=== PATIENT | male | born 1955 | race Caucasian/White ===

== ENCOUNTER 2020-03-20 09:01 | Outpatient (CLI) | payer MEDICARE, SELFPAY ==
[2020-03-20 10:09] LABS: Hematocrit 50.9 % (42.0-52.0); Hemoglobin 17.1 g/dL (14.0-18.0); Mean Corpuscular HGB Conc 33.6 g/dl (32-36); Mean Corpuscular Hemoglobin 29.8 pg (26-34); Mean Corpuscular Volume 88.8 fl (80-100); Mean Platelet Volume 10.5 fl (7.4-10.4); Platelet Count Result 153 k/mm3 (150-375); Red Blood Count 5.73 M/mm3 (4.6-6.20); White Blood Count 6.2 K/mm3 (4.5-10.0)
[2020-03-20 10:21] LABS: Alanine Aminotransferase 18 U/L (4-50); Albumin Level 4.2 g/dL (3.5-5.1); Alkaline Phosphatase 61 U/L (38-126); Anion Gap 8 mmol/L (8-16); Aspartate Amino Transferase 20 U/L (17-59); Bilirubin,Total 0.5 mg/dL (0.2-1.3); Blood Urea Nitrogen 17 mg/dL (9-20); Calcium 9.1 mg/dL (8.4-10.2); Carbon Dioxide 30 mmol/L (22-30); Chloride 104 mmol/L (98-107); Creatine Kinase 89 U/L (55-170); Estimated Glomerular Filt Rate > 60; Glucose 115 mg/dL (75-110); Potassium 4.2 mmol/L (3.4-5.0); Sodium 142 mmol/L (137-145)
[2020-03-20 10:23] LABS: Hemoglobin A1C 5.6 % (<5.7)
[2020-03-20 10:30] LABS: NT Pro B Type Natriuretic Pept 117 PG/ML (5-100)
[2020-03-20 10:51] LABS: Prostate Specific Antigen 3.5 ng/mL (< OR = 4.0)
== END 2020-03-20 09:02 | disposition home or self-care (01) ==
PROVIDERS: PCP Student in an Organized Health Care Education/Training Program; Visit Provider Student in an Organized Health Care Education/Training Program
DX: Z00.00 Encounter for general adult medical examination without abnormal findings (principal); Z13.220 Encounter for screening for lipoid disorders; Z12.5 Encounter for screening for malignant neoplasm of prostate; Z13.29 Encounter for screening for other suspected endocrine disorder; Z13.228 Encounter for screening for other metabolic disorders; Z13.0 Encounter for screening for diseases of the blood and blood-forming organs and certain disorders involving the immune mechanism; R73.9 Hyperglycemia, unspecified; E61.1 Iron deficiency; I65.23 Occlusion and stenosis of bilateral carotid arteries; E66.9 Obesity, unspecified; Z51.81 Encounter for therapeutic drug level monitoring; I50.9 Heart failure, unspecified; J44.9 Chronic obstructive pulmonary disease, unspecified; I42.9 Cardiomyopathy, unspecified; R06.02 Shortness of breath; I49.3 Ventricular premature depolarization; R20.0 Anesthesia of skin; I21.11 ST elevation (STEMI) myocardial infarction involving right coronary artery; R00.2 Palpitations; E78.5 Hyperlipidemia, unspecified; Z87.891 Personal history of nicotine dependence; I11.0 Hypertensive heart disease with heart failure; I25.119 Atherosclerotic heart disease of native coronary artery with unspecified angina pectoris
CPT/HCPCS: 36415; 80053; 82550; 83036; 83880; 84153; 85027; G0103

== ENCOUNTER 2020-06-06 12:19 | Outpatient (CLI) | payer MEDICARE, SELFPAY ==
[2020-06-06 12:53] LABS: Cholesterol 175 mg/dL (0-200); HDL Direct 42 mg/dL; Triglycerides 338 mg/dL (<150)
[2020-06-06 13:04] LABS: LDL Cholesterol Direct 93 mg/dL
[2020-06-06 13:26] LABS: Vitamin D 25 Hydroxy 33.8 ng/mL
[2020-06-10 22:56] LABS: Vitamin D 1,25 (OH)2 Total 46 pg/mL (18-72); Vitamin D2 1,25 (OH)2 <8 pg/mL; Vitamin D3 1,25 (OH)2 46 pg/mL
== END 2020-06-06 12:20 | disposition home or self-care (01) ==
LOC: ANHLAB 12:23
PROVIDERS: PCP Student in an Organized Health Care Education/Training Program; Visit Provider Student in an Organized Health Care Education/Training Program
DX: I25.10 Atherosclerotic heart disease of native coronary artery without angina pectoris (principal); I10 Essential (primary) hypertension; E78.5 Hyperlipidemia, unspecified; Z68.33 Body mass index [BMI] 33.0-33.9, adult
CPT/HCPCS: 36415; 80061; 82306; 82652; 84443

== ENCOUNTER 2020-07-07 09:35 | Outpatient (CLI) | payer MEDICARE, SELFPAY ==
--- NOTE | ~2020-07-07 | CT_ITS ---
EXAMINATION:CT lung screening DATE: 07/07/2020 10:16 INDICATION: Nicotine dependence, cigarettes, uncomplicated. Smoker who quit in 2014 with 44 pack year history. TECHNIQUE: Computed tomography (CT) of the chest was performed without intravenous contrast. Automate d exposure control and iterative reconstruction technique were employed. The dose-length product (DLP ) was 143.74 mGy-cm. COMPARISON: None. FINDINGS: There is mild emphysema. There is a 5 mm nodule in right lower lobe. There are a few scatte red nodules in the lungs measuring up to 3 mm. No pleural effusion. The heart size is normal. 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 No pericardial e ffusion. There are coronary artery calcifications. Median sternotomy wires are noted. There is mild t horacic spondylosis. IMPRESSION: 1. Lung-RADS category 2: Benign appearance or behavior. Continue annual screening with noncontrast lo w-dose chest CT in 12 months. Reviewed, dictated and finalized at location B. PER IMPRESSION: 1. Lung-RADS category 2: Benign appearance or behavior. Continue annual screeni ng with noncontrast low-dose chest CT in 12 months.
== END 2020-07-07 09:36 | disposition home or self-care (01) ==
PROVIDERS: PCP Student in an Organized Health Care Education/Training Program; Visit Provider Student in an Organized Health Care Education/Training Program
DX: F17.210 Nicotine dependence, cigarettes, uncomplicated (principal)
CPT/HCPCS: 71271

== ENCOUNTER 2021-01-16 08:29 | Outpatient (CLI) | payer MEDICARE, SELFPAY ==
--- NOTE | ~2021-01-16 | US_ITS ---
EXAMINATION: US aorta [facility] DATE: 01/16/2021 09:10 INDICATION: Abdominal aortic aneurysm screening with risk factors of prior smoking, hypercholesterole sydni and myocardial infarction. TECHNIQUE: Grayscale, color Doppler, and pulsed Doppler images of the aorta and common iliac arteries were obtained. COMPARISON: None. FINDINGS: The proximal aorta measures 2.9 cm. The mid aorta measures 2.3 cm. Fusiform infrarenal abdominal aort ic aneurysm measuring up to 3.8 cm. The right common iliac artery measures 7 mm. The left common rita c artery measures 11 mm. IMPRESSION: 1. 3.8 cm infrarenal abdominal aortic aneurysm. Reviewed, dictated and finalized at location A.
== END 2021-01-16 08:30 | disposition home or self-care (01) ==
PROVIDERS: PCP Student in an Organized Health Care Education/Training Program; Visit Provider Student in an Organized Health Care Education/Training Program
DX: F17.211 Nicotine dependence, cigarettes, in remission (principal); Z13.6 Encounter for screening for cardiovascular disorders; I71.4 Abdominal aortic aneurysm, without rupture
CPT/HCPCS: 76706

== ENCOUNTER → 2021-02-17 00:55 | Outpatient (CLI) | payer MEDICARE, SELFPAY ==
[2021-02-17 21:01] LABS: SARS-CoV-2 RNA PCR Negative
== END ==
PROVIDERS: PCP Student in an Organized Health Care Education/Training Program; Visit Provider Internal Medicine Gastroenterology
DX: Z01.812 Encounter for preprocedural laboratory examination (principal); Z20.828 Contact with and (suspected) exposure to other viral communicable diseases
CPT/HCPCS: C9803; U0003; U0005

== ENCOUNTER 2021-02-21 00:18 | Day surgery (SDC) | payer MEDICARE, SELFPAY ==
[2021-02-08 14:11] VITALS: BMI 32.3
[2021-02-21 07:49] VITALS: BMI 33.8
[2021-02-21 07:51] VITALS: BP 141/82; PULSE 75; RESP 20; TEMP 36.3; O2SAT 95
--- NOTE | 2021-02-21 08:07 | WPDANESEPPF ---
Anes - Initial Pre Proc Eval Procedure: Operation Date: 02/21/21 08:30 Proposed Procedures p Screening Colonoscopy - Mendez Truong MD Date/Time: 02/21/21 08:07 Surgeon: Mendez Truong MD Pre Op Diagnosis: hx of colon polyps Z86.010 Patient Data Age: 66 Gender: M Height: 1.68 m Weight: 95.1 kg Last Vital Signs Temp 36.3 C L 02/21/21 07:51 Pulse 75 02/21/21 07:51 Resp 20 02/21/21 07:51 BP 141/82 H 02/21/21 07:51 Pulse Ox 95 02/21/21 07:51 Allergies Allergy/AdvReac Type Severity Reaction Status Date / Time codeine Allergy Unknown Other Verified 02/21/21 07:47 Contrast Media Allergy Unknown HIVES Uncoded 02/21/21 07:47 Home Medications Medication Instructions Recorded Confirmed Type carvedilol 25 mg tablet 25 mg PO Q12H 05/24/19 02/21/21 History clopidogrel 75 mg tablet 75 mg PO DAILY 05/24/19 02/21/21 History rosuvastatin 40 mg sprinkle capsule 40 mg PO DAILY 05/24/19 02/08/21 History aspirin [Adult Low Dose Aspirin] 81 mg PO DAILY 02/08/21 02/08/21 History Patient hx anesthesia problems: none Family hx anesthesia problems: none PMFSH Past Medical History Medical History Adult BMI 33.0-33.9 kg/sq m Arthritis CAD (coronary artery disease) CHF (congestive heart failure), NYHA class II Erectile dysfunction H/O: HTN (hypertension) Heart disease Hyperthyroidism SOB (shortness of breath) Surgical History Surgical History (Updated 02/21/21 @ 08:09 by Elias Perez MD) H/O cardiac radiofrequency ablation History of tracheostomy Social History Social History Smoking packs per day: 1 Smoking cigarettes per day: 20.0 Years smoked: 40 Smoking pack-years: 40.00 Smoking status: Former smoker Tobacco type: cigarettes Alcohol intake: never Living arrangements: with family Spiritual care concerns: No Anes - Eval Final PreProcedure Day of Procedure 02/21/21 08:07 Patient weight: obese Heart: regular rate and rhythm Lungs: clear to auscultation Airway: Mallampati scale class III Neurological: alert and oriented Last oral intake: >/= 8 hours ASA classification: IV Emergent: no Anesthetic plan: proceed Anesthesia type and monitoring: general GIVS and standard monitoring Informed Consent: The patient's anesthetic plan and its attendant risks and benefits were discussed with the patient/family/POA. Questions were solicited and answers provided to the satisfaction of the patient/family/POA.
[2021-02-21] MEDS: LACTATED RINGERS 1,000 ML 150 ML IV CONT (08:08)
--- NOTE | 2021-02-21 08:57 | PM.HPGS ---
History of Present Illness History of Present Illness Consent: Risks, benefits, and alternatives have been discussed and questions answered. Patient agrees to proceed with procedure. Chief complaint: hx of colon polyps Z86.010 Narrative: Sebastien Pineda is a 66 year old male with colon polyp 3 years ago. Review of Systems Constitutional: Constitutional: Denies headache(s) and Denies weakness Eyes: Eyes: Denies blurry vision ENT: Reports Normal hearing present, Denies headache(s) and Denies neck pain Cardiovascular: Cardiovascular: Denies chest pain and Denies dyspnea Respiratory: Respiratory: Denies dyspnea Gastrointestinal: Gastrointestinal: Reports no additional gastrointestinal complaints Genitourinary: Genitourinary: Denies dysuria Musculoskeletal: Musculoskeletal: Denies neck pain Integumentary/Breasts: Skin/Breast: Denies dry skin Neurologic: Reports Normal hearing present, Denies headache(s) and Denies weakness Psychiatric: Psychiatric: Denies anxiety Endocrine: Endocrine: Denies change in body appearance Hematologic/Lymphatic: Hematologic/Lymphatic: Denies easy bleeding Allergic/Immunologic: Allergic/Immunologic: Denies urticaria PMFSH Past Medical History Medical History (Updated 02/21/21 @ 08:57 by Mendez Truong MD) Adenomatous colon polyp Adult BMI 33.0-33.9 kg/sq m Arthritis CAD (coronary artery disease) CHF (congestive heart failure), NYHA class II Erectile dysfunction H/O: HTN (hypertension) Heart disease Hyperthyroidism SOB (shortness of breath) Surgical History Surgical History (Updated 02/21/21 @ 08:09 by Elias Perez MD) H/O cardiac radiofrequency ablation History of tracheostomy Social History Social History Smoking packs per day: 1 Smoking cigarettes per day: 20.0 Years smoked: 40 Smoking pack-years: 40.00 Smoking status: Former smoker Tobacco type: cigarettes Alcohol intake: never Living arrangements: with family Spiritual care concerns: No Meds Home Medications and Allergies Home Medications Medication Instructions Recorded Confirmed Type carvedilol 25 mg tablet 25 mg PO Q12H 05/24/19 02/21/21 History clopidogrel 75 mg tablet 75 mg PO DAILY 05/24/19 02/21/21 History rosuvastatin 40 mg sprinkle capsule 40 mg PO DAILY 05/24/19 02/08/21 History aspirin [Adult Low Dose Aspirin] 81 mg PO DAILY 02/08/21 02/08/21 History Allergies Allergy/AdvReac Type Severity Reaction Status Date / Time codeine Allergy Unknown Other Verified 02/21/21 07:47 Contrast Media Allergy Unknown HIVES Uncoded 02/21/21 07:47 Vital Signs Vital Signs - 24 hr 02/21/21 07:51 Temperature 97.3 F L Pulse Rate 75 Respiratory Rate 20 Blood Pressure 141/82 H Pulse Oximetry 95 Exam Const: General: comfortable and no acute distress HENMT: General nose exam: Normal nares present Eyes: General: appearance normal, both eyes and all related structures Neck: Neck: no JVD Resp: Auscultation: clear to auscultation bilaterally Cardio: Rate: regular rate Rhythm: regular rhythm GI: Inspection: non-distended GI Palp: Yes Soft to palpation Skin: General skin exam: normal color Neuro: General: gait normal Speech: normal speech Extrem: General: normal to inspection Psych: Mental Status: mental status grossly normal Assessment and Plan Assessment and plan (1) Adenomatous colon polyp: Code(s): D12.6 - Benign neoplasm of colon, unspecified Status: Acute Assessment and Plan: colonoscopy
[2021-02-21 09:15] VITALS: BP 110/67; PULSE 74; RESP 14; O2SAT 96
[2021-02-21 09:25] VITALS: BP 118/80; PULSE 71; RESP 13; O2SAT 93
[2021-02-21 09:38] VITALS: BP 134/75; PULSE 73; RESP 14; O2SAT 96
== END 2021-02-21 09:51 | disposition home or self-care (01) ==
PROVIDERS: PCP Student in an Organized Health Care Education/Training Program; Visit Provider Internal Medicine Gastroenterology
PROC: 0DJD8ZZ Inspection of Lower Intestinal Tract, Via Natural or Artificial Opening Endoscopic (ICD-10-PCS; CPT 45378; principal; 2021-02-21 08:30)
DX: Z12.11 Encounter for screening for malignant neoplasm of colon (principal); D12.0 Benign neoplasm of cecum; D12.3 Benign neoplasm of transverse colon; K57.30 Diverticulosis of large intestine without perforation or abscess without bleeding; K64.8 Other hemorrhoids; I25.10 Atherosclerotic heart disease of native coronary artery without angina pectoris; I11.0 Hypertensive heart disease with heart failure; I50.9 Heart failure, unspecified; Z79.82 Long term (current) use of aspirin; Z79.02 Long term (current) use of antithrombotics/antiplatelets; Z87.891 Personal history of nicotine dependence; E66.9 Obesity, unspecified; Z68.33 Body mass index [BMI] 33.0-33.9, adult
CPT/HCPCS: 45385; 88305; C9803; J2704; J7120; U0003; U0005

== ENCOUNTER 2021-06-02 12:37 | Emergency (ER) | payer MEDICARE, SELFPAY ==
[2021-06-02 13:11] VITALS: BP 128/77; PULSE 88; RESP 17; TEMP 36.6; O2SAT 98
[2021-06-02 16:03] VITALS: BP 130/76; PULSE 86; RESP 20; O2SAT 99
[2021-06-02 16:15] LABS: Basophils Percent Auto 0.4 % (0.2-1.2); Hematocrit 44.7 % (42.0-52.0); Immature Granulocyte Absolute 0.03 K/mm3 (0.00-0.031); Immature Granulocyte Percent A 0.7 % (0-0.5); Immature Platelet Fraction Pct 7.8 % (0.9-11.2); Lymphocytes Absolute Auto 0.92 K/mm3 (0.9-3.2); Mean Corpuscular HGB Conc 33.6 g/dl (32-36); Mean Corpuscular Hemoglobin 29.3 pg (26-34); Mean Corpuscular Volume 87.3 fl (80-100); Mean Platelet Volume 11.9 fl (7.4-10.4); Monocytes Absolute Auto 0.2 K/mm3 (0.1-0.6); Monocytes Percent Auto 4.6 % (2.6-8.5); Neutrophils Absolute Auto 3.4 K/mm3 (1.3-6.7); Neutrophils Percent Auto 74.3 % (45.5-73.1); Platelet Count Result 93 k/mm3 (150-375); Red Blood Count 5.12 M/mm3 (4.6-6.20); White Blood Count 4.6 K/mm3 (4.5-10.0)
[2021-06-02] MEDS: SODIUM CHLORIDE 0.9% IV 1,000 ML 999 ML IV CONT (16:15)
[2021-06-02] MEDS: ONDANSETRON INJ 4 MG/2 ML VIAL 8 MG IV PUSH (16:15)
[2021-06-02 16:24] LABS: Alanine Aminotransferase 26 U/L (4-50); Albumin Level 4.4 g/dL (3.5-5.1); Alkaline Phosphatase 55 U/L (38-126); Anion Gap 8 mmol/L (8-16); Aspartate Amino Transferase 34 U/L (17-59); Bilirubin,Total 0.6 mg/dL (0.2-1.3); Blood Urea Nitrogen 15 mg/dL (9-20); Calcium 8.4 mg/dL (8.4-10.2); Carbon Dioxide 29 mmol/L (22-30); Chloride 94 mmol/L (98-107); Estimated CRCL calculation 66 ml/min; Estimated Glomerular Filt Rate > 60; Glucose 99 mg/dL (65-110); Potassium 4.1 mmol/L (3.4-5.0); Sodium 131 mmol/L (137-145)
--- NOTE | 2021-06-02 16:49 | ED.GENADULT ---
HPI - General Adult General Chief complaint: Nausea/Vomiting/Diarrhea Stated complaint: covid+ ?? Time Seen by Provider: 06/02/21 15:46 Source: patient and RN notes reviewed Limitations: no limitations History of Present Illness HPI narrative: Patient is 66 years old white male presented to the ED with nausea and dry cough. Patient tested positive for Covid infection 8 days ago. Patient is not vaccinated. Patient denies any shortness of breath or chest pain. Related Data Home Medications Medication Instructions Recorded Confirmed carvedilol 25 mg tablet 25 mg PO Q12H 05/24/19 02/21/21 clopidogrel 75 mg tablet 75 mg PO DAILY 05/24/19 02/21/21 rosuvastatin 40 mg sprinkle capsule 40 mg PO DAILY 05/24/19 02/08/21 aspirin [Adult Low Dose Aspirin] 81 mg PO DAILY 02/08/21 02/08/21 Allergies Allergy/AdvReac Type Severity Reaction Status Date / Time codeine Allergy Unknown Other Verified 06/02/21 16:01 Contrast Media Allergy Unknown HIVES Uncoded 06/02/21 16:01 Review of Systems Review of Systems: CONSTITUTIONAL: Denies fever, chills, or sweats. EYES: Denies visual changes, redness, or discharge. ENT: Denies rhinorrhea, congestion, sore throat, or otalgia. CARDIOVASCULAR: Denies chest pain, palpitations, or edema. RESPIRATORY: Denies cough or dyspnea. GASTROINTESTINAL: Denies abdominal pain, nausea, vomiting, or diarrhea. GENITOURINARY: Denies dysuria or hematuria. SKIN: Denies rash or itching. MUSCULOSKELETAL: Denies back pain, joint pain, or myalgia. NEUROLOGIC: Denies headache, numbness, or weakness. PSYCHIATRIC: Denies anxiety or depression. [facility], [facility] Past Medical History Medical History Adenomatous colon polyp Adult BMI 33.0-33.9 kg/sq m Arthritis CAD (coronary artery disease) CHF (congestive heart failure), NYHA class II Erectile dysfunction H/O: HTN (hypertension) Heart disease Hyperthyroidism SOB (shortness of breath) Surgical History Surgical History H/O cardiac radiofrequency ablation History of tracheostomy Social History Social History Smoking packs per day: 1 Smoking cigarettes per day: 20.0 Years smoked: 40 Smoking pack-years: 40.00 Smoking status: Former smoker Tobacco type: cigarettes Alcohol intake: never Spiritual care concerns: No Exam Narrative: General appearance: Well-developed, well-nourished Skin: Normal color Head: Normocephalic, nontraumatic Eyes: Clear conjunctiva ENT: Oropharynx normal, ears normal, nose normal Neck: Supple, nontender Chest and respiratory: Airway patent, no respiratory distress, no accessory muscle use Heart: Regular rate/rhythm Abdomen: Soft, nontender, no organomegaly, quiet bowel sounds Vascular: Normal peripheral pulses, normal capillary refill. Musculoskeletal: Normal range of motion, nontender back Neurologic: Alert and oriented ?3, ASH HANDLER is normal as tested, no gross motor deficit Course Course Emergency Course: Stable Vital Signs Vital signs: Vital Signs Temperature 36.6 C 06/02/21 13:11 Pulse Rate 88 06/02/21 13:11 Respiratory Rate 17 06/02/21 13:11 Blood Pressure 128/77 06/02/21 13:11 Pulse Oximetry 98 06/02/21 13:11 Temperature 36.6 C 06/02/21 13:11 Pulse Rate 86 06/02/21 16:03 Respiratory Rate 20 06/02/21 16:03 Blood Pressure 130/76 06/02/21 16:03 Pulse Oximetry 99 06/02/21 16:03 Medical Decision Making MDM Narrative Medical decision making narrative: Covid infection syndrome. Clinically patient looks okay, oxygenation on room air 98%, patient denying any s
[2021-06-02 17:55] VITALS: BP 122/67; PULSE 95; RESP 20; O2SAT 100
== END 2021-06-02 17:57 | disposition home or self-care (01) ==
PROVIDERS: Emergency Provider Emergency Medicine; PCP Student in an Organized Health Care Education/Training Program
DX: U07.1 COVID-19 (principal); I25.10 Atherosclerotic heart disease of native coronary artery without angina pectoris; I50.9 Heart failure, unspecified; I11.0 Hypertensive heart disease with heart failure; E05.90 Thyrotoxicosis, unspecified without thyrotoxic crisis or storm; Z87.891 Personal history of nicotine dependence; Z79.82 Long term (current) use of aspirin
CPT/HCPCS: 36415; 80053; 85025; 85055; 96361; 96374; 99284; J2405; J7030

== ENCOUNTER 2021-06-08 13:42 | Inpatient (IN) | payer MEDICARE, SELFPAY ==
[2021-06-08] VITALS (27 sets, daily range): BP systolic 91–143; BP diastolic 60–92; PULSE 85–101; RESP 20–39; TEMP 36.4–39.5; O2SAT 84–96; BMI 34.0
--- NOTE | ~2021-06-08 | XR_ITS ---
EXAMINATION: XR chest 1V portable DATE: 06/08/2021 15:54 INDICATION: Cough. COVID positive. TECHNIQUE: frontal view of the chest was obtained. COMPARISON: CT dated 07/07/2020 FINDINGS: Patchy airspace opacities throughout the right lung and to lesser degree in the left mid and lower emilia ng zones. No pleural effusion or pneumothorax. Cardiac mediastinal silhouette is within normal limits for AP technique. Median sternotomy wires. IMPRESSION: 1. Patchy bilateral lung disease more prominent and extensive on the right consistent with multifocal pneumonia including COVID pneumonia. Differential would include less likely asymmetric pulmonary bubba ma. Reviewed, dictated and finalized at location . MOLDER HELPER IMPRESSION: 1. Patchy bilateral lung disease more prominent and extensive on the right cons istent with multifocal pneumonia including COVID pneumonia. Differential would include less likely asymmetric pulmonary edema.
--- NOTE | ~2021-06-08 | XR_ITS ---
EXAMINATION: XR chest 1V portable EXAM DATE: 06/13/2021 08:42 INDICATION: Chest pain and dyspnea . TECHNIQUE: Portable AP frontal chest x-ray was obtained. Comparison is made to prior examination from 06/10/2021. FINDINGS: There is multi segmental bibasilar airspace disease, but with interval improvement in the r ight upper lobe airspace disease. No pneumothorax or pleural effusion. Sternotomy wires are present w ithout findings to suggest sternal dehiscence. Cardiomediastinal silhouette is normal. There are mild bony degenerative changes. IMPRESSION: 1. Extensive bibasilar pneumonia with interval improvement in right upper lobe. Reviewed, dictated and finalized at location A. ING WHEEL INSPECTOR IMPRESSION: 1. Extensive bibasilar pneumonia with interval improvement in right upper lobe .
--- NOTE | ~2021-06-08 | CT_ITS ---
EXAMINATION: CTA chest PE abdomen pel DATE: 06/08/2021 16:43 INDICATION: Shortness of breath, hypoxia, fever, COVID positive and positive d-dimer. TECHNIQUE: Computed tomography (CT) pulmonary angiogram of the chest was performed with 100 mL Omnipa que-350 intravenous contrast. Additional 3D reconstructions utilizing coronal maximum intensity proje ction (MIP) were performed. CT of the abdomen and pelvis was performed with intravenous contrast util izing the same contrast bolus following a short delay. Automated exposure control and iterative recon struction technique were employed. The dose-length product was 1339.92 mGy-cm. COMPARISON: None FINDINGS: Chest: Excellent contrast opacification of the pulmonary arteries. There is mild streak artifact from dense contrast in the superior vena cava and right atrium. Mild scattered respiratory motion artifact which does not significantly limit evaluation. No pulmonary embolism. Multiple bilateral patchy groundglas s opacities in both lungs with peripheral and lower lung predominance with appearance consistent with COVID pneumonia. There is more relatively large region of more dense consolidation with air bronchog nam in the right upper lobe with appearance more suspicious for atypical pneumonia. Also atypical fo r COVID pneumonia is the presence of a small right pleural effusion. No pneumothorax or left-sided pl eural effusion. Heart size is normal. Atherosclerotic coronary artery calcific lesions and likely cor onary stenting along the right coronary artery. No pericardial effusion. Median sternotomy wires. Tho racic aorta is normal in caliber with no dissection. Likely reactive mildly prominent but still robin l-sized likely reactive right hilar and mediastinal lymph nodes. No pathologically enlarged thoracic lymphadenopathy. Mild thoracic spondylosis. Abdomen/pelvis: Diffuse hepatic steatosis with more focal pattern steatosis at the ligamentum teres. Gallbladder, spl een, pancreas, bilateral adrenal glands and kidneys are normal. There is mild colonic diverticulosis with a sigmoid predominance. There is no adjacent inflammatory change to suggest diverticulitis. Sma ll bowel and appendix are normal. Bladder is normal. No free intraperitoneal gas or fluid. No patholo gically enlarged abdominal or pelvic lymphadenopathy. Mild ectasia of the infrarenal abdominal aorta measuring up to 3.1 cm in maximal diameter. 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 Mild thoracic spondylosis. IMPRESSION: 1. No pulmonary embolism. 2. Diffuse bilateral lung disease with consistent with COVID pneumonia and more dense consolidation i n the right upper lobe along with a small right pleural effusion which raises suspicion of superimpos ed lobar bacterial pneumonia. 3. Likely reactive mild right hilar and mediastinal lymphadenopathy. 4. No acute intra-abdominal/pelvic process. Reviewed, dictated and finalized at [facility] H. DEVELOPER WITH [employer] IMPRESSION: 1. No pulmonary embolism. 2. Diffuse bilateral lung disease with consistent with COVID pneumonia and more dense consolidation in the right upper lobe along with a small right pleural e ffusion which raises suspicion of superimposed lobar bacterial pneumonia. 3. Likely reactive mild right hilar and mediastinal lymphadenopathy. 4. No acute intra-abdominal/pelvic process.
--- NOTE | ~2021-06-08 | XR_ITS ---
EXAMINATION: XR chest 1V portable EXAM DATE: 06/17/2021 06:06 INDICATION: Dyspnea and cough. TECHNIQUE: Portable AP frontal chest x-ray was obtained. Comparison is made to prior examination from 06/13/2021. FINDINGS: Sternotomy wires are present without findings to suggest sternal dehiscence. There is multi segmental bibasilar airspace disease, diffuse abnormal reticulation with continued improvement since more confluent consolidation. No pneumothorax or pleural effusion. Cardiomediastinal silhouette is n ormal. There are mild bony degenerative changes. IMPRESSION: Moderate amount of basilar airspace disease, pneumonia or edema with continued improvemen t. Reviewed, dictated and finalized at location A. UNT DEVELOPMENT ASSOCIATE IMPRESSION: Moderate amount of basilar airspace disease, pneumonia or edema wit h continued improvement.
--- NOTE | ~2021-06-08 | XR_ITS ---
XR chest 1V portable DATE: 06/10/2021 10:34 INDICATION: Pneumonia TECHNIQUE: Portable upright AP chest on 06/10/2021 at 0911 hours COMPARISON: 06/08/2021 CTA chest abdomen pelvis 06/08/2021 portable AP chest FINDINGS: Status post sternotomy. Normal heart size. There are extensive patchy bilateral pulmonary infiltrates, diffusely involving the right lung, most prominent in the right upper lobe with consolidation, and left lower lung. There is little interval change since 06/04/2021. No pleural effusion or pneumothorax. IMPRESSION: Extensive bilateral pulmonary infiltrates, right greater than left, relatively stable sin ce 06/08/2021 Reviewed, dictated and finalized at location A. G MACHINE OPERATOR IMPRESSION: Extensive bilateral pulmonary infiltrates, right greater than left, relatively stable since 06/08/2021
--- NOTE | 2021-06-08 14:44 | PC.NURSE ---
DIRECTOR OCCUPATIONAL carmen aware of temp of 103.1, Pt took tylenol around 12:30. DIRECTOR OCCUPATIONAL seeing patient at bedside at this time.
--- NOTE | 2021-06-08 14:54 | ECG_ITS ---
Measurements Intervals [place] Rate: 95 P: 39 IL: 121 QRS: 35 QRSD: 119 T: 7 QT: 367 QTc: 462 Interpretive Statements SINUS RHYTHM POSSIBLE LEFT ATRIAL ENLARGEMENT INTRAVENTRICULAR CONDUCTION DELAY MINIMAL Q WAVES- INFERIOR LEADS BORDERLINE ST ABNORMALITY- LATERAL LEADS BASELINE ARTIFACT- I, II, III, AVR, AVL, AVF, V1-V6 BORDERLINE ECG Electronically Signed On 06-08-2021 17:00:16 WEAPONS AND [employer] INSTRUCTOR by Ari Anderson D.O.
--- NOTE | 2021-06-08 15:06 | ED.GENADULT ---
HPI - General Adult General Chief complaint: Shortness of Breath/Dyspnea Stated complaint: sob, COVID + Time Seen by Provider: 06/08/21 14:18 Source: patient Mode of arrival: ambulatory Limitations: other (Poor historian) History of Present Illness HPI narrative: Patient presents for evaluation of fever, chills, cough. He indicates he developed symptoms on May 27, 2021. He took a home Covid test that was positive that day. He states his children checked his O2 sats at home and they were low, so they brought him here for further evaluation. He states his cough has been nonproductive. He initially informed me that he has not experienced SOB but later states that he is. He denies any chest pain or leg swelling. He has experienced a sore throat. He denies abdominal pain, nausea or vomiting. He has an underlying hx of HTN, hyperlipidemia, CAD s/p stent placement x 9. He cannot tell me whether he has ever been on or is currently taking any blood thinners. He is a former smoker. He states his is currently hospitalized here for COVID. He states that he did not receive COVID vaccines as he has a hx of Guillain [place] syndrome. Related Data Home Medications Medication Instructions Recorded Confirmed carvedilol 25 mg tablet 25 mg PO Q12H 05/24/19 02/21/21 clopidogrel 75 mg tablet 75 mg PO DAILY 05/24/19 02/21/21 rosuvastatin 40 mg sprinkle capsule 40 mg PO DAILY 05/24/19 02/08/21 aspirin [Adult Low Dose Aspirin] 81 mg PO DAILY 02/08/21 02/08/21 Allergies Allergy/AdvReac Type Severity Reaction Status Date / Time codeine Allergy Unknown Other Verified 06/08/21 14:39 Contrast Media Allergy Unknown HIVES Uncoded 06/08/21 14:39 Review of Systems Review of Systems: CONSTITUTIONAL: Reports fever and chills. Denies sweating EYES: Denies visual changes, redness, or discharge. ENT: Reports sore throat. Denies rhinorrhea, congestion, or otalgia. CARDIOVASCULAR: Denies chest pain, palpitations, or edema. RESPIRATORY: Reports nonproductive cough and SOB. GASTROINTESTINAL: Denies abdominal pain, nausea, vomiting, or diarrhea. GENITOURINARY: Denies dysuria or hematuria. SKIN: Denies rash or itching. MUSCULOSKELETAL: Denies back pain, joint pain, or myalgia. NEUROLOGIC: Denies headache, numbness, dizziness, or weakness. PSYCHIATRIC: Denies anxiety or depression. [facility] Past Medical History Medical History (Updated 06/08/21 @ 18:42 by JAIME Villarreal, ) Adenomatous colon polyp Adult BMI 33.0-33.9 kg/sq m Arthritis CAD (coronary artery disease) CHF (congestive heart failure), NYHA class II Erectile dysfunction H/O: HTN (hypertension) Heart disease Hyperthyroidism SOB (shortness of breath) Surgical History Surgical History H/O cardiac radiofrequency ablation History of heart artery stent History of tracheostomy Family History Family History Mother No pertinent past medical history Social History Social History Smoking packs per day: 1 Smoking cigarettes per day: 20.0 Years smoked: 40 Smoking pack-years: 40.00 Smoking status: Former smoker Tobacco type: cigarettes Alcohol intake: never Substance use: never Living arrangements: with family Gender identity (if verbalized by the patient): Male Sexual Orientation (if Verbalized by the Patient): Straight or Heterosexual Spiritual care concerns: No Exam Narrative: GENERAL: Ill appearing, diaphoretic with generalized pallor HEAD: Normocephalic, atraumatic. EYES: PERRLA and EOMI. ENT: Nares clear, no rhinorrhea or epistaxis. Mucous membranes moist. Oropharynx without tonsillar hypertrophy exudate or other lesions. Bilateral TMs pearly milner nonbulging NECK: Supple. No adenopathy or masses. No carotid bruits or JVD CHEST: Rales noted bilaterally. Cough prese
[2021-06-08 15:27] LABS: Basophils Percent Auto 0.5 % (0.2-1.2); Hematocrit 40.3 % (42.0-52.0); Hemoglobin 13.2 g/dL (14.0-18.0); Immature Granulocyte Absolute 0.69 K/mm3 (0.00-0.031); Immature Granulocyte Percent A 8.2 % (0-0.5); Lymphocytes Percent Auto 7.1 % (18.3-44.2); Mean Corpuscular HGB Conc 32.8 g/dl (32-36); Mean Corpuscular Hemoglobin 28.8 pg (26-34); Mean Platelet Volume 10.9 fl (7.4-10.4); Monocytes Absolute Auto 0.3 K/mm3 (0.1-0.6); Monocytes Percent Auto 3.1 % (2.6-8.5); Neutrophils Absolute Auto 6.9 K/mm3 (1.3-6.7); Neutrophils Percent Auto 81.1 % (45.5-73.1); Platelet Count Result 153 k/mm3 (150-375); Red Blood Count 4.58 M/mm3 (4.6-6.20); Red Cell Distribution Width 13.6 % (11.5-14.5); White Blood Count 8.5 K/mm3 (4.5-10.0)
[2021-06-08] MEDS: ACETAMINOPHEN 325 MG TABLET 650 MG PO (15:29)
[2021-06-08 15:36] LABS: INR 1.1; Prothrombin Time 14.2 Seconds (11.1-14.7)
[2021-06-08 15:37] LABS: Alanine Aminotransferase 133 U/L (4-50); Albumin Level 3.5 g/dL (3.5-5.1); Alkaline Phosphatase 193 U/L (38-126); Anion Gap 10 mmol/L (8-16); Aspartate Amino Transferase 403 U/L (17-59); Bilirubin,Total 2.2 mg/dL (0.2-1.3); Blood Urea Nitrogen 28 mg/dL (9-20); Calcium 7.8 mg/dL (8.4-10.2); Carbon Dioxide 28 mmol/L (22-30); Chloride 90 mmol/L (98-107); Estimated CRCL calculation 56 ml/min; Estimated Glomerular Filt Rate > 60; Glucose 102 mg/dL (65-110); Partial Thromboplastin Time 41.8 SECONDS (22.3-36.8); Potassium 3.9 mmol/L (3.4-5.0); Sodium 128 mmol/L (137-145)
[2021-06-08 15:47] LABS: Alveolar/Arterial O2 Gradient 152.1 mmHg; Base Excess ABG 1.7 mEq/l (+/-2.0); Fractional Inspired Oxygen 36 %; HCO3 ABG 25.2 mEq/l (22.0-26.0); Oxygen Content ABG 17.6 %vol (16.0-22.0); Oxygen Saturation ABG 93.2 % (95.0-100.0); Oxyhemoglobin 90.7 % THb (90.0-100.0); PCO2 ABG 36.4 mmHg (35.0-45.0); PO2 ABG 62.4 mmHg (80.0-100.0); PO2 FiO2 Ratio Arterial Blood 1.73 %; Total Hemoglobin 13.8 g/dL (12.0-18.0); pH ABG 7.459 (7.350-7.450)
[2021-06-08 15:48] LABS: Device NASAL CANNULA; Modified Allen's Test Pass; Site Drawn LEFT RADIAL
[2021-06-08 15:53] LABS: D Dimer 6.31 ug/mL (<0.48); NT Pro B Type Natriuretic Pept 3150 pg/mL (5-100); Troponin I 0.072 ng/mL (0.000-0.034)
--- NOTE | 2021-06-08 16:19 | PC.NURSE ---
Pt off floor to CT scan
--- NOTE | 2021-06-08 16:19 | PC.NURSE ---
Two sets of blood cultures drawn and sent prior to starting antibiotics. Will call lab to reflect this order.
[2021-06-08 16:40] LABS: Platelet Estimate Adequate (Adequate); Smudge Cells FEW
[2021-06-08 18:14] LABS: Troponin I 0.078 ng/mL (0.000-0.034)
[2021-06-08] MEDS: LACTATED RINGERS 1,000 ML 125 ML IV CONT (19:25)
--- NOTE | 2021-06-08 19:51 | PC.NURSE ---
Called and gave update to daughter with permission of patient, gave update.
[2021-06-08] MEDS: ALBUTEROL SULFATE (*SP) AEROSOL 1 PUFF 2 PUFF INHALATION (20:14)
--- NOTE | 2021-06-08 20:15 | PM.IMHP ---
H&P: HPI History of Present Illness Date/Time: 06/08/21 20:15 Chief Complaint: Shortness of breath Narrative: This is a 66-year-old male with past medical history significant for coronary artery disease, congestive heart failure, hypertension, hyperlipidemia. Patient presented to the emergency room due to worsening shortness of breath, dry cough, fatigue, body aches and pains, fevers, chills, poor appetite. According to patient he had tested positive for COVID with a home kit 12 days ago. According to history patient's is also admitted here for COVID pneumonia patient was not a candidate for COVID vaccine due to history of Guillain-[place]. His children were visiting today and checked his pulse ox which was low which prompted him to come to the emergency room his pulse ox on room air was 88% and patient was placed on 2 L of supplemental oxygen by nasal cannula at the time of my visit patient had a persistent dry cough. Preliminary workup was significant for chest x-ray with diffuse infiltrates, a CT angiogram the chest was significant for diffuse bilateral lung disease with consistent with COVID pneumonia and more dense consolidation in the right upper lobe along with a small right pleural effusion which raises suspicion of superimposed lobar bacterial pneumonia. Patient has been admitted for further evaluation management and treatment. Review of Systems Review of Systems: Dry cough, body aches and pains, poor appetite, shortness of breath, fevers, chills rigors. Constitutional: Constitutional: Reports chills, Reports fatigue, Reports fever(s), Reports lethargy, Reports malaise, Reports night sweats and Reports poor appetite Eyes: Eyes: Denies change in vision ENT: Denies dysphagia, Denies nasal congestion, Denies nasal discharge, Denies nasal obstruction and Denies odynophagia Cardiovascular: Cardiovascular: Denies leg edema, Denies lightheadedness, Denies radiating jaw, neck or arm pain, Denies palpitations, Denies dyspnea on exertion and Denies orthopnea Respiratory: Respiratory: Reports cough, Denies excessive phlegm production and Reports dyspnea Gastrointestinal: Gastrointestinal: Denies abdominal pain, Denies dyspepsia, Denies heartburn, Denies nausea and Denies vomiting Genitourinary: Genitourinary: Denies dysuria Musculoskeletal: Musculoskeletal: Reports myalgias Integumentary/Breasts: Skin/Breast: Denies rash Neurologic: Denies focal weakness and Denies Sensory deficit (Neuro) Psychiatric: Psychiatric: Reports no additional psychiatric complaints and Reports as per HPI Endocrine: Endocrine: Denies cold intolerance, Denies polyphagia and Denies palpitations Hematologic/Lymphatic: Hematologic/Lymphatic: Reports no additional hematologic/lymphatic complaints and Reports as per HPI Allergic/Immunologic: Allergic/Immunologic: Reports no additional allergic/immunologic complaints and Reports as per HPI [facility] Past Medical History Medical History (Updated 06/09/21 @ 00:11 by Teagan Lr MD) Adenomatous colon polyp Adult BMI 33.0-33.9 kg/sq m Arthritis CAD (coronary artery disease) CHF (congestive heart failure), NYHA class II Erectile dysfunction H/O: HTN (hypertension) Heart disease Hyperthyroidism SOB (shortness of breath) Surgical History Surgical History H/O cardiac radiofrequency ablation History of heart artery stent History of tracheostomy Family History Family History Mother No pertinent past medical history Social History Social History Smoking packs per day: 1 Smoking cigarettes per day: 20.0 Years smoked: 40 Smoking pack-years: 40.00 Smoking status: Former smoker Tobacco type: cigarettes Second hand tobacco smoke exposure: No Alcohol intake: never Substance use: never Living arrangements: [facility]
--- NOTE | 2021-06-08 20:29 | PC.NURSE ---
OK to speak with daughterEulalia. [phone]
--- NOTE | 2021-06-08 20:59 | PC.NURSE ---
Attempted to call daughter Eulalia to update on bed status, did not answer, voicemail box full.
[2021-06-08 21:08] LABS: Troponin I 0.059 ng/mL (0.000-0.034)
--- NOTE | 2021-06-08 21:17 | PC.NURSE ---
Spoke with daughter about bed status (Eulalia [phone])
--- NOTE | 2021-06-08 22:45 | ADMGEN ---
This patient, Sebastien Pineda, was admitted to [facility] Surg Room 316-02. Patient/family oriented to hospital policies and general routines including ID bracelet, bed and alarms, visiting hours, pain management, procedures, bathroom and other care routines, personal items, smoking policy, room service/diet, and visiting hours. Information on how to activate the Rapid Response Team has been discussed. Patient/Family are encouraged to report perceived risks to care and to ask questions if they do not understand what they are told or what they should do.
[2021-06-08 23:31] LABS: INR 1.1; Prothrombin Time 13.9 Seconds (11.1-14.7)
[2021-06-08 23:32] LABS: Alanine Aminotransferase 150 U/L (4-50); Estimated CRCL calculation 61 ml/min; Estimated Glomerular Filt Rate > 60
[2021-06-08] MEDS: REMDESIVIR 200 MG/NS 250 ML 200 MG/250 ML BAG 250 MG IVPB (23:38)
[2021-06-09] VITALS (11 sets, daily range): BP systolic 105–169; BP diastolic 59–95; PULSE 74–91; RESP 18–25; TEMP 35.6–36.8; O2SAT 90–97
[2021-06-09] MEDS: LACTATED RINGERS 1,000 ML 125 ML IV CONT ×3 (05:24→21:20)
[2021-06-09 06:23] LABS: Basophils Absolute Auto 0.1 K/mm3 (0.0-0.1); Basophils Percent Auto 0.7 % (0.2-1.2); Hematocrit 38.5 % (42.0-52.0); Hemoglobin 12.3 g/dL (14.0-18.0); Immature Granulocyte Absolute 0.26 K/mm3 (0.00-0.031); Lymphocytes Absolute Auto 0.49 K/mm3 (0.9-3.2); Lymphocytes Percent Auto 5.6 % (18.3-44.2); Mean Corpuscular HGB Conc 31.9 g/dl (32-36); Mean Corpuscular Hemoglobin 28.5 pg (26-34); Mean Corpuscular Volume 89.1 fl (80-100); Mean Platelet Volume 10.7 fl (7.4-10.4); Monocytes Absolute Auto 0.2 K/mm3 (0.1-0.6); Monocytes Percent Auto 2.4 % (2.6-8.5); Neutrophils Absolute Auto 7.7 K/mm3 (1.3-6.7); Neutrophils Percent Auto 88.3 % (45.5-73.1); Platelet Count Result 159 k/mm3 (150-375); Red Blood Count 4.32 M/mm3 (4.6-6.20); Red Cell Distribution Width 13.6 % (11.5-14.5); White Blood Count 8.8 K/mm3 (4.5-10.0)
[2021-06-09 06:31] LABS: INR 1.2; Prothrombin Time 14.8 Seconds (11.1-14.7)
[2021-06-09 06:48] LABS: Alanine Aminotransferase 147 U/L (4-50); Albumin Level 3.3 g/dL (3.5-5.1); Alkaline Phosphatase 171 U/L (38-126); Anion Gap 8 mmol/L (8-16); Aspartate Amino Transferase 444 U/L (17-59); Bilirubin,Total 1.3 mg/dL (0.2-1.3); Blood Urea Nitrogen 25 mg/dL (9-20); Calcium 7.9 mg/dL (8.4-10.2); Carbon Dioxide 31 mmol/L (22-30); Chloride 91 mmol/L (98-107); Estimated CRCL calculation 67 ml/min; Estimated Glomerular Filt Rate > 60; Glucose 188 mg/dL (65-110); Potassium 3.9 mmol/L (3.4-5.0); Sodium 130 mmol/L (137-145)
--- NOTE | 2021-06-09 11:36 | PM.IMPN ---
Progress Note: A&P Assessment and Plan (1) Pneumonia due to COVID-19 virus: Code(s): U07.1 - COVID-19; J12.82 - Pneumonia due to coronavirus disease 2019 Status: Acute Assessment and Plan: Patient tested positive for COVID-19 with a home kit Check PCR Continue remdesivir and dexamethasone On 6 L O2 Monitor Cr, liver function, PT/INR Supportive care (2) Acute hypoxemic respiratory failure: Code(s): J96.01 - Acute respiratory failure with hypoxia Status: Acute Assessment and Plan: Likely secondary to pneumonia Patient is currently on supplemental oxygen 6 L by nasal cannula Try and keep oxygen saturation at 94% Supportive care Breathing treatment (3) Lobar pneumonia: Code(s): J18.1 - Lobar pneumonia, unspecified organism Status: Acute Assessment and Plan: Patient receive ceftriaxone and Zithromax in the emergency room Added vancomycin and Zosyn, continue for now Follow Await cultures (4) CAD (coronary artery disease): Code(s): I25.10 - Atherosclerotic heart disease of [place] coronary artery without angina pectoris Status: Acute Assessment and Plan: Continue Plavix, continue carvedilol Continue rosuvastatin Continue to monitor (5) CHF (congestive heart failure), NYHA class II: Code(s): I50.9 - Heart failure, unspecified Status: Acute Assessment and Plan: Appears to be compensated Continue to monitor Subjective Date/time seen: 06/09/21 11:36 Interval history: Pt seen this a.m.; labs, vs, diagnostic results reviewed; +SOB, GAMBLE Review of Systems Review of Systems: All systems reviewed & are unremarkable except as noted in HPI and below Exam Const: General: no acute distress, alert and awake Orientation/consciousness: patient oriented x3 HENMT: Head: normocephalic and atraumatic Ears: hearing grossly normal bilaterally and external ears normal Face and sinus: face symmetric Mouth: Yes Normal oral and palatal mucosa present Eyes: EOM: EOMs intact bilaterally Neck: Neck: full ROM, trachea midline and no JVD Chest: Chest palpation & inspection: normal inspection of the chest Resp: Effort & Inspection: normal respiratory effort Cardio: Jugular venous distension: no JVD Rate: regular rate Rhythm: regular rhythm GI: Auscultation: normal bowel sounds Back/Spine/Pelvis: Back: no CVA tenderness Skin: General skin exam: normal color Rashes: no rashes Neuro: General: patient oriented x3, moves all extremities and no focal motor deficits Speech: normal speech Extrem: General: no clubbing, cyanosis or edema Psych: Appearance: grossly normal Affect: normal affect Judgement: Good judgement present (Psych) Objective Data Vital Signs Vital Signs: Vital Signs - 24 hr 06/08/21 13:53 06/08/21 13:56 06/08/21 14:11 Temperature 37.7 C H Pulse Rate 90 99 Respiratory Rate 20 39 H Blood Pressure 107/61 Pulse Oximetry 88 L 93 96 06/08/21 14:15 06/08/21 14:16 06/08/21 14:17 Temperature Pulse Rate 99 99 99 Respiratory Rate 38 H 35 H 39 H Blood Pressure 111/71 Pulse Oximetry 86 L 87 L 96 06/08/21 14:33 06/08/21 14:39 06/08/21 15:00 Temperature 39.5 C H Pulse Rate 101 H 100 Respiratory Rate 36 H Blood Pressure 143/83 H 128/62 Pulse Oximetry 94 93 06/08/21 16:08 06/08/21 17:09 06/08/21 17:10 Temperature 37.2 C Pulse Rate 95 90 88 Respiratory Rate 35 H 30 H Blood Pressure 123/85 Pulse Oximetry 91 91 92 06/08/21 17:15 06/08/21 17:36 06/08/21 18:49 Temperature Pulse Rate 88 86 85 Respiratory Rate Blood Pressure 114/87 Pulse Oximetry 93 93 91 06/08/21 19:00 06/08/21 19:15 06/08/21 19:30 Temperature Pulse Rate 86 86 90 Respiratory Rate 35 H 33 H Blood Pressure Pulse Oximetry 90 06/08/21 19:35 06/08/21 20:00 06/08/21 20:01 Temperature Pulse Rate 85 87 Respiratory Rate 26 H 27 H Blood Pressure 91/64 L Pulse Oximetry 84 L 90
[2021-06-09] MEDS: WATER FOR IRRIGATION, STERILE 1,000 ML BOTTLE 1000 ML (14:09)
[2021-06-09] MEDS: MELATONIN 5 MG TABLET PO (22:23)
[2021-06-09] MEDS: REMDESIVIR 100 MG/NS 250 ML 100 MG/250 ML BAG 250 MG IVPB (23:49)
[2021-06-10] VITALS (8 sets, daily range): BP systolic 101–152; BP diastolic 54–81; PULSE 64–75; RESP 18–21; TEMP 35.6–36.8; O2SAT 91–99
[2021-06-10] MEDS: ONDANSETRON INJ 4 MG/2 ML VIAL IV PUSH (03:17)
[2021-06-10 06:28] LABS: INR 1.1; Prothrombin Time 13.6 Seconds (11.1-14.7)
[2021-06-10 06:31] LABS: Alanine Aminotransferase 117 U/L (4-50); Estimated CRCL calculation 94 ml/min; Estimated Glomerular Filt Rate > 60
[2021-06-10 08:59] LABS: Hematocrit 40.1 % (42.0-52.0); Hemoglobin 12.9 g/dL (14.0-18.0); Mean Corpuscular HGB Conc 32.2 g/dl (32-36); Mean Corpuscular Hemoglobin 29.3 pg (26-34); Mean Corpuscular Volume 90.9 fl (80-100); Mean Platelet Volume 11.6 fl (7.4-10.4); Platelet Count Result 171 k/mm3 (150-375); Red Blood Count 4.41 M/mm3 (4.6-6.20); Red Cell Distribution Width 13.5 % (11.5-14.5); White Blood Count 8.8 K/mm3 (4.5-10.0)
[2021-06-10] MEDS: ENOXAPARIN 40 MG/0.4 ML SYRINGE SUB-Q (10:29)
[2021-06-10] MEDS: DEXAMETHASONE 2 MG TABLET 6 MG PO (10:29)
[2021-06-10 10:59] LABS: Alanine Aminotransferase 123 U/L (4-50); Albumin Level 3.2 g/dL (3.5-5.1); Alkaline Phosphatase 149 U/L (38-126); Anion Gap 3 mmol/L (8-16); Aspartate Amino Transferase 324 U/L (17-59); Blood Urea Nitrogen 26 mg/dL (9-20); CRP 28.8 mg/dL (<1.0); Calcium 8.3 mg/dL (8.4-10.2); Carbon Dioxide 31 mmol/L (22-30); Chloride 98 mmol/L (98-107); Estimated CRCL calculation 94 ml/min; Estimated Glomerular Filt Rate > 60; Glucose 125 mg/dL (65-110); Lactate Dehydrogenase 1872 U/L (313-618); Potassium 4.6 mmol/L (3.4-5.0); Sodium 132 mmol/L (137-145)
--- NOTE | 2021-06-10 11:37 | PM.IMPN ---
Progress Note: A&P Assessment and Plan (1) Acute hypoxemic respiratory failure: Code(s): J96.01 - Acute respiratory failure with hypoxia Status: Acute Assessment and Plan: Secondary to COVID pneumonia with complement bacterial pneumonia. Continue supplemental oxygen as needed with goal saturation 92% or above. Currently on 8 L per nasal cannula and maintaining sats 98%, therefore this can be weaned. Plan as detailed below No PE on CTA (2) Pneumonia due to COVID-19 virus: Code(s): U07.1 - COVID-19; J12.82 - Pneumonia due to coronavirus disease 2018 Status: Acute Assessment and Plan: Positive COVID test with home kit 12 days prior to presentation. CXR showed patchy bilateral lung disease, more extensive on the right side and CTA showed diffuse lung disease consistent with COVID pneumonia and more dense consolidation in the right upper lobe raising concern for superimposed bacterial pneumonia. Confirmatory PCR testing at this facility is pending Continue remdesivir #3. Monitor LFTs. LFTs are elevated but trending down. ALT 117 Started dexamethasone 6 mg daily today. Continue for up to 10 days He is outside window for administration of baricitinib despite his increasing O2 requirements Supportive care to include bronchodilators, expectorants, antipyretics, incentive spirometry Supplemental O2 as needed. Currently requiring 8 L per high flow nasal cannula Continue isolation precautions Patient has not been vaccinated for COVID-19 due to history of Guillain-[place] syndrome at age 14 (3) Lobar pneumonia: Code(s): J18.1 - Lobar pneumonia, unspecified organism Status: Acute Assessment and Plan: See above. Repeat CXR pending Continue ceftriaxone and azithromycin for treatment of CAP. Preliminary blood cultures negative Attempt to obtain sputum culture Repeat CXR today shows stable pneumonia (4) CAD (coronary artery disease): Code(s): I25.10 - Atherosclerotic heart disease of [place] coronary artery without angina pectoris Status: Acute Assessment and Plan: No acute issues Continue home regimen including aspirin, Plavix, rosuvastatin (5) CHF (congestive heart failure), NYHA class II: Code(s): I50.9 - Heart failure, unspecified Status: Acute Assessment and Plan: No prior echo available for review. 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 He is feeling a bit better today. He states that his shortness of breath is improving. He is coughing less frequently. He does endorse a persistent cough that is occasionally productive of white sputum. Denies hemoptysis. Denies chest pain. Does endorse occasional conversational dyspnea as well as dyspnea on exertion. Denies nausea, vomiting, diarrhea. He did have a loose stool 2 days ago but no subsequent issues. His appetite is good. Sense of smell and taste remain intact. Denies dizziness or lightheadedness. He did have trouble falling asleep last night. Discussed sleep hygiene. He tells me that his is hospitalized in intensive care secondary to COVID-19. Review of Systems Review of Systems: All systems reviewed & are unremarkable except as noted in HPI and below Exam Narrative: Mr. Pineda is a well-nourished, well-appearing 66-year-old male who is lying supine in bed. He appears comfortable and is in NARD. Neuro: awake, alert and oriented x4, speech clear, no focal neuro deficits noted HEENMT: normocephalic, atraumatic, EOMI, sclerae anicteric, moist oral mucosa Neck: supple, no l
--- NOTE | 2021-06-10 11:37 | P.PNIM_ITS ---
Progress Note: A&P Assessment and Plan (1) Acute hypoxemic respiratory failure: Code(s): J96.01 - Acute respiratory failure with hypoxia Status: Acute Assessment and Plan: Secondary to COVID pneumonia with complement bacterial pneumonia. * Continue supplemental oxygen as needed with goal saturation 92% or above. * Currently on 8 L per nasal cannula and maintaining sats 98%, therefore this can be weaned. * Plan as detailed below * No PE on CTA (2) Pneumonia due to COVID-19 virus: Code(s): U07.1 - COVID-19; J12.82 - Pneumonia due to coronavirus disease 2019 Status: Acute Assessment and Plan: Positive COVID test with home kit 12 days prior to presentation. CXR showed patchy bilateral lung disease, more extensive on the right side and CTA showed diffuse lung disease consistent with COVID pneumonia and more dense consolidation in the right upper lobe raising concern for superimposed bacterial pneumonia. * Confirmatory PCR testing at this facility is pending * Continue remdesivir #3. Monitor LFTs. LFTs are elevated but trending down. ALT 117 * Started dexamethasone 6 mg daily today. Continue for up to 10 days * He is outside window for administration of baricitinib despite his increasing O2 requirements * Supportive care to include bronchodilators, expectorants, antipyretics, incentive spirometry * Supplemental O2 as needed. Currently requiring 8 L per high flow nasal cannula * Continue isolation precautions * Patient has not been vaccinated for COVID-19 due to history of Guillain-[place] syndrome at age 14 (3) Lobar pneumonia: Code(s): J18.1 - Lobar pneumonia, unspecified organism Status: Acute Assessment and Plan: See above. * Repeat CXR pending * Continue ceftriaxone and azithromycin for treatment of CAP. * Preliminary blood cultures negative * Attempt to obtain sputum culture * Repeat CXR today shows stable pneumonia (4) CAD (coronary artery disease): Code(s): I25.10 - Atherosclerotic heart disease of [place] coronary artery without angina pectoris Status: Acute Assessment and Plan: No acute issues * Continue home regimen including aspirin, Plavix, rosuvastatin (5) CHF (congestive heart failure), NYHA class II: Code(s): I50.9 - Heart failure, unspecified Status: Acute Assessment and Plan: No prior echo available for review. 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 He is feeling a bit better today. He states that his shortness of breath is improving. He is coughing less frequently. He does endorse a persistent cough that is occasionally productive of white sputum. Denies hemoptysis. Denies chest pain. Does endorse occasional conversational dyspnea as well as dyspnea on exertion. Denies nausea, vomiting, diarrhea. He did have a loose stool 2 days ago but no subsequent issues. His appetite is good. Sense of smell and taste remain intact. Denies dizziness or lightheadedness. He did have trouble falling asleep last night. Discussed sleep hygiene. He tells me that his is hospitalized in intensive care secondary to COVID-19. Review of Systems Review of Systems: All
[2021-06-10] MEDS: SODIUM CHLORIDE NASAL GEL 14.1 GM 1 APPLIC NASAL (12:11)
[2021-06-10 12:26] LABS: Ferritin > 2000.00 ng/mL (11.1-264)
[2021-06-10 17:04] LABS: SARS-CoV-2 RNA PCR Positive
[2021-06-10] MEDS: guaiFENesin 12 HR 600 MG TABCR PO (20:18)
[2021-06-10] MEDS: REMDESIVIR 100 MG/NS 250 ML 100 MG/250 ML BAG 250 MG IVPB (20:18)
[2021-06-10] MEDS: MELATONIN 5 MG TABLET PO (20:18)
[2021-06-11] VITALS (9 sets, daily range): BP systolic 109–145; BP diastolic 63–77; PULSE 65–88; RESP 18–20; TEMP 35.5–37.7; O2SAT 90–98
[2021-06-11] MEDS: diphenhydrAMINE HCl CAP 25 MG CAPSULE PO (00:16)
[2021-06-11] MEDS: ALBUTEROL SULFATE (*SP) AEROSOL 1 PUFF 2 PUFF INHALATION ×4 (03:20→21:16)
[2021-06-11 05:13] LABS: Hematocrit 39.6 % (42.0-52.0); Mean Corpuscular HGB Conc 32.8 g/dl (32-36); Mean Corpuscular Hemoglobin 29.7 pg (26-34); Mean Corpuscular Volume 90.6 fl (80-100); Mean Platelet Volume 11.2 fl (7.4-10.4); Platelet Count Result 217 k/mm3 (150-375); Red Blood Count 4.37 M/mm3 (4.6-6.20); Red Cell Distribution Width 13.3 % (11.5-14.5); White Blood Count 6.7 K/mm3 (4.5-10.0)
[2021-06-11 05:23] LABS: Prothrombin Time 13.5 Seconds (11.1-14.7)
[2021-06-11 05:27] LABS: Alanine Aminotransferase 118 U/L (4-50); Alkaline Phosphatase 161 U/L (38-126); Anion Gap 2 mmol/L (8-16); Aspartate Amino Transferase 210 U/L (17-59); Bilirubin,Total 0.8 mg/dL (0.2-1.3); Blood Urea Nitrogen 22 mg/dL (9-20); Carbon Dioxide 37 mmol/L (22-30); Chloride 96 mmol/L (98-107); Estimated CRCL calculation 83 ml/min; Estimated Glomerular Filt Rate > 60; Glucose 137 mg/dL (65-110); Lactate Dehydrogenase 1443 U/L (313-618); Potassium 4.3 mmol/L (3.4-5.0); Sodium 135 mmol/L (137-145)
[2021-06-11 05:35] LABS: CRP 16.2 mg/dL (<1.0)
[2021-06-11 05:44] LABS: Vancomycin Trough 7.6 ug/mL (10.0-20.0)
[2021-06-11 06:50] LABS: Ferritin > 2000.00 ng/mL (11.1-264)
[2021-06-11] MEDS: DEXAMETHASONE 2 MG TABLET 6 MG PO (08:40)
[2021-06-11] MEDS: ENOXAPARIN 40 MG/0.4 ML SYRINGE SUB-Q (09:02)
[2021-06-11] MEDS: guaiFENesin 12 HR 600 MG TABCR PO ×2 (09:02→20:50)
--- NOTE | 2021-06-11 14:56 | P.PNIM_ITS ---
Progress Note: A&P Assessment and Plan (1) Acute hypoxemic respiratory failure: Code(s): J96.01 - Acute respiratory failure with hypoxia Status: Acute Assessment and Plan: Secondary to COVID pneumonia with concomitant bacterial pneumonia. * Continue supplemental oxygen as needed with goal saturation 92% or above. * Currently on 6 L per nasal cannula and maintaining adequate O2 sats * Plan as detailed below * No PE on CTA (2) Pneumonia due to COVID-19 virus: Code(s): U07.1 - COVID-19; J12.82 - Pneumonia due to coronavirus disease 2018 Status: Acute Assessment and Plan: Positive COVID test with home kit 12 days prior to presentation. CXR showed patchy bilateral lung disease, more extensive on the right side and CTA showed diffuse lung disease consistent with COVID pneumonia and more dense consolidation in the right upper lobe raising concern for superimposed bacterial pneumonia. * Confirmatory PCR testing positive from test 06/09/2021 * Continue remdesivir #3. Monitor LFTs. LFTs are elevated but trending down. ALT 118 * Continue dexamethasone 6 mg daily. #2 today. Continue for up to 10 days * Supportive care to include bronchodilators, expectorants, antipyretics, incentive spirometry * Supplemental O2 as needed. Currently requiring 6 L per high flow nasal cannula * Continue isolation precautions * Patient has not been vaccinated for COVID-19 due to history of Guillain-[place] syndrome at age 14 (3) Lobar pneumonia: Code(s): J18.1 - Lobar pneumonia, unspecified organism Status: Acute Assessment and Plan: See above. * Repeat CXR yesterday showed stable pneumonia * Continue ceftriaxone and azithromycin for treatment of CAP. * Vancomycin and Zosyn discontinued 06/10. Pt does not have risk factors and has not recently been hospitalized. * Preliminary blood cultures negative * Attempt to obtain sputum culture (4) CAD (coronary artery disease): Code(s): I25.10 - Atherosclerotic heart disease of [place] coronary artery without angina pectoris Status: Acute Assessment and Plan: No acute issues * Continue home regimen including aspirin, Plavix, rosuvastatin (5) CHF (congestive heart failure), NYHA class II: Code(s): I50.9 - Heart failure, unspecified Status: Acute Assessment and Plan: No prior echo available for review. 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 Feels better today. Shortness of breath is somewhat. Continues to endorse dry cough productive of clear sputum. He has very poor appetite but he is trying to get himself to eat for each meal and has been eating well. He does feel overall weak and quite fatigued. He has been sleeping for much of the day. He has been trying to lie in a prone position when he can. Denies nausea, vomiting, fever, chills. Denies dizziness or lightheadedness. He has been able to get up to the bedside commode and feels steady on his feet. Denies diarrhea. No trouble urinating. No additional concerns at this time. Review of Systems Review of Systems: All systems reviewed & are unremarkable except as noted in HPI and below Exam Narrative: Mr. Pineda is a well-nourished, wel
--- NOTE | 2021-06-11 14:56 | PM.IMPN ---
Progress Note: A&P Assessment and Plan (1) Acute hypoxemic respiratory failure: Code(s): J96.01 - Acute respiratory failure with hypoxia Status: Acute Assessment and Plan: Secondary to COVID pneumonia with concomitant bacterial pneumonia. Continue supplemental oxygen as needed with goal saturation 92% or above. Currently on 6 L per nasal cannula and maintaining adequate O2 sats Plan as detailed below No PE on CTA (2) Pneumonia due to COVID-19 virus: Code(s): U07.1 - COVID-19; J12.82 - Pneumonia due to coronavirus disease 2018 Status: Acute Assessment and Plan: Positive COVID test with home kit 12 days prior to presentation. CXR showed patchy bilateral lung disease, more extensive on the right side and CTA showed diffuse lung disease consistent with COVID pneumonia and more dense consolidation in the right upper lobe raising concern for superimposed bacterial pneumonia. Confirmatory PCR testing positive from test 06/09/2021 Continue remdesivir #3. Monitor LFTs. LFTs are elevated but trending down. ALT 118 Continue dexamethasone 6 mg daily. #2 today. Continue for up to 10 days Supportive care to include bronchodilators, expectorants, antipyretics, incentive spirometry Supplemental O2 as needed. Currently requiring 6 L per high flow nasal cannula Continue isolation precautions Patient has not been vaccinated for COVID-19 due to history of Guillain-[place] syndrome at age 14 (3) Lobar pneumonia: Code(s): J18.1 - Lobar pneumonia, unspecified organism Status: Acute Assessment and Plan: See above. Repeat CXR yesterday showed stable pneumonia Continue ceftriaxone and azithromycin for treatment of CAP. Vancomycin and Zosyn discontinued 06/10. Pt does not have risk factors and has not recently been hospitalized. Preliminary blood cultures negative Attempt to obtain sputum culture (4) CAD (coronary artery disease): Code(s): I25.10 - Atherosclerotic heart disease of [place] coronary artery without angina pectoris Status: Acute Assessment and Plan: No acute issues Continue home regimen including aspirin, Plavix, rosuvastatin (5) CHF (congestive heart failure), NYHA class II: Code(s): I50.9 - Heart failure, unspecified Status: Acute Assessment and Plan: No prior echo available for review. 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 Feels better today. Shortness of breath is somewhat. Continues to endorse dry cough productive of clear sputum. He has very poor appetite but he is trying to get himself to eat for each meal and has been eating well. He does feel overall weak and quite fatigued. He has been sleeping for much of the day. He has been trying to lie in a prone position when he can. Denies nausea, vomiting, fever, chills. Denies dizziness or lightheadedness. He has been able to get up to the bedside commode and feels steady on his feet. Denies diarrhea. No trouble urinating. No additional concerns at this time. Review of Systems Review of Systems: All systems reviewed & are unremarkable except as noted in HPI and below Exam Narrative: Mr. Pineda is a well-nourished, well-appearing 66-year-old male who is lying supine in bed. He appears comfortable and is in NARD. Neuro: awake, alert and oriented x4, speech clear, no focal neuro deficits noted HEENMT: normocephalic, atraumatic, EOMI, sclerae anicteric, moist oral mucosa Neck: supple, no lymphadenopathy Respiratory: Scattered rhonchi, faint post expiratory wheezes, nonlabored breathing, no accessory muscle use or retraction
[2021-06-11] MEDS: REMDESIVIR 100 MG/NS 250 ML 100 MG/250 ML BAG 250 MG IVPB (20:50)
[2021-06-11] MEDS: MELATONIN 5 MG TABLET PO (20:50)
[2021-06-12] VITALS (8 sets, daily range): BP systolic 124–138; BP diastolic 48–73; PULSE 61–79; RESP 16–22; TEMP 36.3–36.8; O2SAT 93–100
--- NOTE | 2021-06-12 03:45 | PCRCNOTE ---
past scheduled time for administration- see next available administration
[2021-06-12 06:46] LABS: Hemoglobin 13.8 g/dL (14.0-18.0); Mean Corpuscular HGB Conc 31.4 g/dl (32-36); Mean Corpuscular Hemoglobin 29.1 pg (26-34); Mean Corpuscular Volume 92.6 fl (80-100); Mean Platelet Volume 10.4 fl (7.4-10.4); Platelet Count Result 241 k/mm3 (150-375); Red Blood Count 4.75 M/mm3 (4.6-6.20); Red Cell Distribution Width 13.4 % (11.5-14.5); White Blood Count 7.3 K/mm3 (4.5-10.0)
[2021-06-12 06:53] LABS: INR 1.1; Prothrombin Time 14.5 Seconds (11.1-14.7)
[2021-06-12 07:03] LABS: Alanine Aminotransferase 124 U/L (4-50); Albumin Level 3.2 g/dL (3.5-5.1); Alkaline Phosphatase 154 U/L (38-126); Anion Gap 2 mmol/L (8-16); Aspartate Amino Transferase 133 U/L (17-59); Bilirubin,Total 0.6 mg/dL (0.2-1.3); Blood Urea Nitrogen 22 mg/dL (9-20); Calcium 8.3 mg/dL (8.4-10.2); Carbon Dioxide 36 mmol/L (22-30); Chloride 98 mmol/L (98-107); Estimated CRCL calculation 94 ml/min; Estimated Glomerular Filt Rate > 60; Glucose 112 mg/dL (65-110); Lactate Dehydrogenase 1199 U/L (313-618); Potassium 4.2 mmol/L (3.4-5.0); Sodium 136 mmol/L (137-145)
[2021-06-12] MEDS: guaiFENesin 12 HR 600 MG TABCR PO ×2 (09:11→20:15)
[2021-06-12] MEDS: DEXAMETHASONE 2 MG TABLET 6 MG PO (09:11)
[2021-06-12] MEDS: ENOXAPARIN 40 MG/0.4 ML SYRINGE SUB-Q (09:12)
[2021-06-12] MEDS: ACETAMINOPHEN 325 MG TABLET 650 MG PO ×2 (09:26→20:15)
[2021-06-12] MEDS: ALBUTEROL SULFATE (*SP) AEROSOL 1 PUFF 2 PUFF INHALATION ×4 (10:08→20:50)
--- NOTE | 2021-06-12 12:30 | PM.IMPN ---
Progress Note: A&P Assessment and Plan (1) Acute hypoxemic respiratory failure: Code(s): J96.01 - Acute respiratory failure with hypoxia Status: Acute Assessment and Plan: Secondary to COVID pneumonia with concomitant bacterial pneumonia. Continue supplemental oxygen as needed with goal saturation 92% or above. Currently on RA sating 94-97% Plan as detailed below No PE on CTA (2) Pneumonia due to COVID-19 virus: Code(s): U07.1 - COVID-19; J12.82 - Pneumonia due to coronavirus disease 2018 Status: Acute Assessment and Plan: Positive COVID test with home kit 12 days prior to presentation. CXR showed patchy bilateral lung disease, more extensive on the right side CTA showed diffuse lung disease consistent with COVID pneumonia and more dense consolidation in the right upper lobe raising concern for superimposed bacterial pneumonia. Confirmatory PCR testing positive from test 06/09/2021 Continue remdesivir #4. LFTs are elevated but trending down. ALT 124 Continue dexamethasone 6 mg daily. #3 today. Continue for up to 10 days Supportive care to include bronchodilators, expectorants, antipyretics, incentive spirometry Supplemental O2 as needed. wean to maintain saturation above 92% Continue isolation precautions Patient has not been vaccinated for COVID-19 due to history of Guillain-Roann syndrome at age 14 inflammatory markers: CRP 7.0, LDH 1199, AST/ALT 133/124, alk phos 154 (3) Lobar pneumonia: Code(s): J18.1 - Lobar pneumonia, unspecified organism Status: Acute Assessment and Plan: See above. Repeat CXR showed stable pneumonia 06/11/21 Continue ceftriaxone and azithromycin for treatment of CAP. Vancomycin and Zosyn discontinued 06/10. Pt does not have risk factors and has not recently been hospitalized. Preliminary blood cultures negative Attempt to obtain sputum culture (4) CAD (coronary artery disease): Code(s): I25.10 - Atherosclerotic heart disease of [place] coronary artery without angina pectoris Status: Acute Assessment and Plan: No acute issues Continue home regimen including aspirin, Plavix, rosuvastatin (5) CHF (congestive heart failure), NYHA class II: Code(s): I50.9 - Heart failure, unspecified Status: Acute Assessment and Plan: No prior echo available for review. He does appear euvolemic on exam Continue carvedilol Monitor volume status (6) Insomnia: Code(s): G47.00 - Insomnia, unspecified Status: Acute Assessment and Plan: Probably from the steroids Melatonin Added Xanax Time Spent With Patient Time with patient: Greater than 35 minutes Subjective Date/time seen: 06/12/21 12:30 Interval history: Interval history: Date of service: 06/11/2021 Sebastien Pineda is a 66-year-old male with a history of CAD, CHF, hypertension, hyperthyroidism, and Guillain-Roann syndrome with residual neuropathy who is seen in follow-up for COVID-19 pneumonia. Feels better today. Shortness of breath is somewhat. Continues to endorse dry cough productive of clear sputum. He has very poor appetite but he is trying to get himself to eat for each meal and has been eating well. He does feel overall weak and quite fatigued. He has been sleeping for much of the day. He has been trying to lie in a prone position when he can. Denies nausea, vomiting, fever, chills. Denies dizziness or lightheadedness. He has been able to get up to the bedside commode and feels steady on his feet. Denies diarrhea. No trouble urinating. No additional concerns at this time. Date/Time 06/12/21 1230 Patient was lying in bed. Patient was on 5 L however patient was sitting 100% on 5 L. oxygen was weaned down and he is on room air satting 94-97%. Patient is complaining that he is not getting any sleep. He states that the melatonin does not work for him. Appetite still lagging he lydia
--- NOTE | 2021-06-12 12:30 | P.PNIM_ITS ---
Progress Note: A&P Assessment and Plan (1) Acute hypoxemic respiratory failure: Code(s): J96.01 - Acute respiratory failure with hypoxia Status: Acute Assessment and Plan: * Secondary to COVID pneumonia with concomitant bacterial pneumonia. * Continue supplemental oxygen as needed with goal saturation 92% or above. * Currently on RA sating 94-97% * Plan as detailed below * No PE on CTA (2) Pneumonia due to COVID-19 virus: Code(s): U07.1 - COVID-19; J12.82 - Pneumonia due to coronavirus disease 2018 Status: Acute Assessment and Plan: * Positive COVID test with home kit 12 days prior to presentation. * CXR showed patchy bilateral lung disease, more extensive on the right side * CTA showed diffuse lung disease consistent with COVID pneumonia and more dense consolidation in the right upper lobe raising concern for superimposed bacterial pneumonia. * Confirmatory PCR testing positive from test 06/09/2021 * Continue remdesivir #4. * LFTs are elevated but trending down. ALT 124 * Continue dexamethasone 6 mg daily. #3 today. Continue for up to 10 days * Supportive care to include bronchodilators, expectorants, antipyretics, incentive spirometry * Supplemental O2 as needed. wean to maintain saturation above 92% * Continue isolation precautions * Patient has not been vaccinated for COVID-19 due to history of Guillain-[place] syndrome at age 14 * inflammatory markers: CRP 7.0, LDH 1199, AST/ALT 133/124, alk phos 154 (3) Lobar pneumonia: Code(s): J18.1 - Lobar pneumonia, unspecified organism Status: Acute Assessment and Plan: See above. * Repeat CXR showed stable pneumonia 06/11/21 * Continue ceftriaxone and azithromycin for treatment of CAP. * Vancomycin and Zosyn discontinued 06/10. Pt does not have risk factors and has not recently been hospitalized. * Preliminary blood cultures negative * Attempt to obtain sputum culture (4) CAD (coronary artery disease): Code(s): I25.10 - Atherosclerotic heart disease of [place] coronary artery without angina pectoris Status: Acute Assessment and Plan: No acute issues * Continue home regimen including aspirin, Plavix, rosuvastatin (5) CHF (congestive heart failure), NYHA class II: Code(s): I50.9 - Heart failure, unspecified Status: Acute Assessment and Plan: * No prior echo available for review. * He does appear euvolemic on exam * Continue carvedilol * Monitor volume status (6) Insomnia: Code(s): G47.00 - Insomnia, unspecified Status: Acute Assessment and Plan: * Probably from the steroids * Melatonin * Added Xanax Time Spent With Patient Time with patient: Greater than 35 minutes Subjective Date/time seen: 06/12/21 12:30 Interval history: Interval history: Date of service: 06/11/2021 Sebastien Pineda is a 66-year-old male with a history of CAD, CHF, hypertension, hyperthyroidism, and Guillain-[place] syndrome with residual neuropathy who is seen in follow-up for COVID-19 pneumonia. Feels better today. Shortness of breath is somewhat. Continues to endorse dry cough productive of clear sputum. He has very poor appetite but he is trying to get himself to eat for each meal and has been eating well. He does feel overall weak and quite fatigued. He has been sleeping for much of the day. He has been trying to lie in a prone position when he can. Denies nausea, vomiting, fever, chills. Denies dizziness or lightheadedness. He has been able to get up to the bedside commode an
[2021-06-12] MEDS: LORazepam INJ (*CRX) 2 MG/ML VIAL 0.25 MG IV PUSH (13:45)
[2021-06-12] MEDS: MELATONIN 5 MG TABLET PO (20:15)
[2021-06-12] MEDS: REMDESIVIR 100 MG/NS 250 ML 100 MG/250 ML BAG 250 MG IVPB (21:02)
[2021-06-12] MEDS: ALPRAZolam (*CRX) 0.125 MG TABLET PO (21:52)
[2021-06-13] VITALS (22 sets, daily range): BP systolic 106–149; BP diastolic 60–92; PULSE 75–90; RESP 14–24; TEMP 35.9–36.5; O2SAT 91–96
[2021-06-13] MEDS: ALBUTEROL SULFATE (*SP) AEROSOL 1 PUFF 2 PUFF INHALATION ×3 (02:04→20:30)
--- NOTE | 2021-06-13 07:15 | PM.IMPN ---
Progress Note: A&P Assessment and Plan (1) Acute hypoxemic respiratory failure: Code(s): J96.01 - Acute respiratory failure with hypoxia Status: Acute Assessment and Plan: Secondary to COVID pneumonia with concomitant bacterial pneumonia. Continue supplemental oxygen as needed with goal saturation 92% or above. Saturations in the high 80s when sitting at rest Currently on 2L sating 92% Plan as detailed below No PE on CTA (2) Pneumonia due to COVID-19 virus: Code(s): U07.1 - COVID-19; J12.82 - Pneumonia due to coronavirus disease 2018 Status: Acute Assessment and Plan: Positive COVID test with home kit 12 days prior to presentation. repeat CXR showed Extensive bibasilar pneumonia with interval improvement in right upper lobe. CTA showed diffuse lung disease consistent with COVID pneumonia and more dense consolidation in the right upper lobe raising concern for superimposed bacterial pneumonia. Confirmatory PCR testing positive from test 06/09/2021 Continue remdesivir #5 extended for 5 more days LFTs are elevated AST/ALT 135/176 Continue dexamethasone 6 mg daily. #5 today. Changed to IV BID Continue Azithromycin, Ceftriaxone has been DC'd Supportive care to include bronchodilators, expectorants, antipyretics, incentive spirometry Supplemental O2 as needed. wean to maintain saturation above 92% Continue isolation precautions Patient has not been vaccinated for COVID-19 due to history of Guillain-[place] syndrome at age 14 inflammatory markers: CRP 4.7, LDH 1386, Dimer 3.75, Ferritin 1140 (3) Lobar pneumonia: Code(s): J18.1 - Lobar pneumonia, unspecified organism Status: Acute Assessment and Plan: See above. Repeat CXR showed stable pneumonia 06/12/21 Continue azithromycin, DC'd ceftriaxone at this time Day 5 Vancomycin and Zosyn discontinued 06/10. Pt does not have risk factors and has not recently been hospitalized. Preliminary blood cultures negative Sputum culture shows gram positive cocci, still preliminary (4) CAD (coronary artery disease): Code(s): I25.10 - Atherosclerotic heart disease of [place] coronary artery without angina pectoris Status: Acute Assessment and Plan: Chest pain noted today Continue home regimen including aspirin, rosuvastatin, carvedilol Hold plavix since he is on lovenox Trops 7.730, repeat is pending Repeat EKG no significant changes from [address] Anderson about this and added full dose lovenox, and need to look for any new wall abnormalities (5) CHF (congestive heart failure), NYHA class II: Code(s): I50.9 - Heart failure, unspecified Status: Acute Assessment and Plan: No prior echo available for review. Could be fluid overloaded, BNP high on the 24th, repeat pending One dose of lasix 40mg IV Could be going into an acute exacerbation with noted chest pain, and increased shortness of breath Continue carvedilol Monitor volume status (6) Insomnia: Code(s): G47.00 - Insomnia, unspecified Status: Acute Assessment and Plan: Probably from the steroids Melatonin Increase Xanax (7) Chest pain: Code(s): R07.9 - Chest pain, unspecified Status: Acute Assessment and Plan: Sternal chest pain with no radiation Extensive CAD history Does have a significant cough Trop elevated at 7.730, will trend Echo pending BNP 4780 Cardiology consult thank you for your help, review case with who was listed on the call list, Dr. Anderson, who stated that this is all probably related to the history and also to covid. He recommended to get the echo and to see if there is any wall abnormalities, prior to an official consult Heart healthy diet (8) Elevated troponin: Code(s): R77.8 - Other specified abnormalities of plasma proteins Status: Acute Assessment and Plan: First trop
--- NOTE | 2021-06-13 07:15 | P.PNIM_ITS ---
Progress Note: A&P Assessment and Plan (1) Acute hypoxemic respiratory failure: Code(s): J96.01 - Acute respiratory failure with hypoxia Status: Acute Assessment and Plan: * Secondary to COVID pneumonia with concomitant bacterial pneumonia. * Continue supplemental oxygen as needed with goal saturation 92% or above. * Saturations in the high 80s when sitting at rest * Currently on 2L sating 92% * Plan as detailed below * No PE on CTA (2) Pneumonia due to COVID-19 virus: Code(s): U07.1 - COVID-19; J12.82 - Pneumonia due to coronavirus disease 2018 Status: Acute Assessment and Plan: * Positive COVID test with home kit 12 days prior to presentation. * repeat CXR showed Extensive bibasilar pneumonia with interval improvement in right upper lobe. * CTA showed diffuse lung disease consistent with COVID pneumonia and more dense consolidation in the right upper lobe raising concern for superimposed bacterial pneumonia. * Confirmatory PCR testing positive from test 06/09/2021 * Continue remdesivir #5 extended for 5 more days * LFTs are elevated AST/ALT 135/176 * Continue dexamethasone 6 mg daily. #5 today. Changed to IV BID * Continue Azithromycin, Ceftriaxone has been DC'd * Supportive care to include bronchodilators, expectorants, antipyretics, incen tive spirometry * Supplemental O2 as needed. wean to maintain saturation above 92% * Continue isolation precautions * Patient has not been vaccinated for COVID-19 due to history of Guillain-[place] syndrome at age 14 * inflammatory markers: CRP 4.7, LDH 1386, Dimer 3.75, Ferritin 1140 (3) Lobar pneumonia: Code(s): J18.1 - Lobar pneumonia, unspecified organism Status: Acute Assessment and Plan: * See above. * Repeat CXR showed stable pneumonia 06/12/21 * Continue azithromycin, DC'd ceftriaxone at this time Day 5 * Vancomycin and Zosyn discontinued 06/10. Pt does not have risk factors and has not recently been hospitalized. * Preliminary blood cultures negative * Sputum culture shows gram positive cocci, still preliminary (4) CAD (coronary artery disease): Code(s): I25.10 - Atherosclerotic heart disease of [place] coronary artery without angina pectoris Status: Acute Assessment and Plan: * Chest pain noted today * Continue home regimen including aspirin, rosuvastatin, carvedilol * Hold plavix since he is on lovenox * Trops 7.730, repeat is pending * Repeat EKG no significant changes from 2017 * Talked to Dr. Anderson about this and added full dose lovenox, and need to look for any new wall abnormalities (5) CHF (congestive heart failure), NYHA class II: Code(s): I50.9 - Heart failure, unspecified Status: Acute Assessment and Plan: * No prior echo available for review. * Could be fluid overloaded, BNP high on the 24, repeat pending * One dose of lasix 40mg IV * Could be going into an acute exacerbation with noted chest pain, and increased shortness of breath * Continue carvedilol * Monitor volume status (6) Insomnia: Code(s): G47.00 - Insomnia, unspecified Status: Acute Assessment and Plan: * Probably from the steroids * Melatonin * Increase Xanax (7) Chest pain: Code(s): R07.9 - Chest pain, unspecified Status: Acute Assessment and Plan: * Sternal chest pain with no radiation * Extensive CAD history * Does have a significant cough * Trop elevated at 7.730, will trend * Echo pending * BNP 4780
[2021-06-13 07:17] LABS: Alanine Aminotransferase 126 U/L (4-50); Albumin Level 3.3 g/dL (3.5-5.1); Alkaline Phosphatase 137 U/L (38-126); Anion Gap 6 mmol/L (8-16); Aspartate Amino Transferase 135 U/L (17-59); Bilirubin,Total 0.8 mg/dL (0.2-1.3); Blood Urea Nitrogen 21 mg/dL (9-20); CRP 4.7 mg/dL (<1.0); Calcium 8.4 mg/dL (8.4-10.2); Carbon Dioxide 27 mmol/L (22-30); Chloride 100 mmol/L (98-107); D Dimer 3.75 ug/mL (<0.48); Estimated CRCL calculation 94 ml/min; Estimated Glomerular Filt Rate > 60; Glucose 101 mg/dL (65-110); Lactate Dehydrogenase 1386 U/L (313-618); Magnesium 2.1 mg/dL (1.6-2.3); Potassium 4.1 mmol/L (3.4-5.0); Sodium 133 mmol/L (137-145)
[2021-06-13 07:49] LABS: Basophils Percent Auto 0.4 % (0.2-1.2); Eosinophils Percent Auto 0.1 % (0-4.4); Hematocrit 42.6 % (42.0-52.0); Hemoglobin 14.2 g/dL (14.0-18.0); Immature Granulocyte Percent A 3.8 % (0-0.5); Lymphocytes Absolute Auto 0.64 K/mm3 (0.9-3.2); Lymphocytes Percent Auto 8.1 % (18.3-44.2); Mean Corpuscular HGB Conc 33.3 g/dl (32-36); Mean Corpuscular Volume 90.1 fl (80-100); Mean Platelet Volume 10.2 fl (7.4-10.4); Monocytes Absolute Auto 0.3 K/mm3 (0.1-0.6); Monocytes Percent Auto 4.2 % (2.6-8.5); Neutrophils Absolute Auto 6.6 K/mm3 (1.3-6.7); Neutrophils Percent Auto 83.4 % (45.5-73.1); Platelet Count Result 274 k/mm3 (150-375); Red Blood Count 4.73 M/mm3 (4.6-6.20); Red Cell Distribution Width 13.4 % (11.5-14.5); White Blood Count 7.9 K/mm3 (4.5-10.0)
[2021-06-13] MEDS: DEXAMETHASONE 2 MG TABLET 6 MG PO (08:14)
[2021-06-13] MEDS: ENOXAPARIN 40 MG/0.4 ML SYRINGE SUB-Q (08:15)
[2021-06-13] MEDS: guaiFENesin 12 HR 600 MG TABCR PO ×2 (08:15→20:25)
[2021-06-13] MEDS: ALPRAZolam (*CRX) 0.125 MG TABLET PO ×2 (08:22→20:25)
[2021-06-13] MEDS: ONDANSETRON INJ 4 MG/2 ML VIAL IV PUSH (08:22)
--- NOTE | 2021-06-13 08:51 | ECG_ITS ---
Measurements Intervals [place] Rate: 91 P: 31 [place]: 124 QRS: 13 QRSD: 130 T: 126 QT: 397 QTc: 489 Interpretive Statements SINUS RHYTHM POSSIBLE LEFT ATRIAL ENLARGEMENT INFERIOR INFARCT, AGE INDETERMINATE BORDERLINE ST-T WAVE ABNORMALITY- ANTEROLAT/HIGH LAT LEADS BASELINE ARTIFACT- V3 ABNORMAL ECG Electronically Signed On 06-13-2021 10:00:17 [employer] by Ari Anderson D.O.
[2021-06-13 10:10] LABS: NT Pro B Type Natriuretic Pept 4780 pg/mL (5-100)
[2021-06-13] MEDS: PHARMACIST COMMUNICATION ORDER 1 EACH XX (10:30)
[2021-06-13] MEDS: FUROSEMIDE INJ 40 MG/4 ML VIAL IV PUSH (11:05)
[2021-06-13] MEDS: ROSUVASTATIN 10 MG TABLET 40 MG PO (11:06)
[2021-06-13] MEDS: carvediloL 25 MG TABLET PO ×2 (11:06→20:25)
[2021-06-13] MEDS: ASPIRIN 81 MG CHEWABLE TABLET PO (11:07)
[2021-06-13] MEDS: MORPHINE SULFATE (*CRX) 2 MG/ML INJ 1 MG IV PUSH (11:09)
--- NOTE | 2021-06-13 11:32 | PCRCNOTE ---
Window of time for administration has passed. See next scheduled administration.
[2021-06-13] MEDS: diphenhydrAMINE HCl INJ 50 MG/ML VIAL 25 MG IV PUSH (16:47)
--- NOTE | 2021-06-13 16:48 | PM.CNCAR ---
Assessment and Plan Assessment and plan (1) Acute coronary syndrome: Code(s): I24.9 - Acute ischemic heart disease, unspecified Status: Acute Assessment and Plan: Patient is obviously experiencing an acute coronary syndrome. He has been having intermittent chest pain for the past couple of days. He had minimally elevated troponins at presentation. No consultation was requested at that point. He was admitted for COVID treatment. According to the patient and according to the patient's children, who I also talked to, the patient started having more significant pain last night and the patient himself states that his pain was more prominent this morning and has continued throughout the day. His symptoms had been waxing and waning over the past couple of days but today he states it has been pretty consistent. Initial troponins are elevated earlier this morning. Second set of troponins were downtrending. We were then notified of consultation after the 2nd set of troponins which were already downtrending. We also were not notified of the patient's still having chest pain. After reviewing the patient's EKG and since the patient is still having chest pain, patient will be taken urgently to the cardiac catheterization lab for further workup and intervention. It is likely he has occluded his RCA or a branch of his RCA. He also has an IV dye allergy. He has been receiving steroids because of his COVID infection. I will give him 25 mg IV Benadryl now. His aspirin, rosuvastatin, carvedilol will be continued. Patient was on dual antiplatelet therapy with the addition of clopidogrel but this has not been ordered since admission for unknown reasons. 2D echocardiogram Doppler will be ordered. 1 milligram/kilogram subQ q.12 hours enoxaparin had been ordered but 1st dose of 95 mg subQ was not scheduled to be given until 9:00 p.m. He will get loaded with either clopidogrel or Brilinta in the rd lab technician. P.r.n. nitroglycerin 0.4 mg sublingual as needed and as tolerated, but I am hesitant to give at this point given the fact that it appears to be an inferior [place] and his blood pressure is already borderline low. Further workup and recommendations depending on the results of his angiogram. (2) Pneumonia due to COVID-19 virus: Code(s): U07.1 - COVID-19; J12.82 - Pneumonia due to coronavirus disease 2019 Status: Acute Assessment and Plan: Per hospitalist (3) CAD (coronary artery disease): Code(s): I25.10 - Atherosclerotic heart disease of [place] coronary artery without angina pectoris Status: Acute Assessment and Plan: As detailed above (4) Ischemic cardiomyopathy: Code(s): I25.5 - Ischemic cardiomyopathy Status: Acute Assessment and Plan: Previous ejection fraction noted to be 42% by nuclear according to history (5) COPD (chronic obstructive pulmonary disease): Code(s): J44.9 - Chronic obstructive pulmonary disease, unspecified Status: Acute (6) Essential hypertension: Code(s): I10 - Essential (primary) hypertension Status: Acute Assessment and Plan: Continue current meds. (7) Hyperlipidemia LDL goal <70: Code(s): E78.5 - Hyperlipidemia, unspecified Status: Acute Assessment and Plan: Continue high-dose statin (8) Abdominal aortic aneurysm: Code(s): I71.4 - Abdominal aortic aneurysm, without rupture Status: Acute Assessment and Plan: Measured at 3.8 cm History of Present Illness History of Present Illness Consult date/time: 06/13/21 16:48 Requesting physician: Abran Rollins, [facility] Consult reason: chest pain and Other (Positive troponins) Reason For Visit: Acute hypoxemic respiratory failure Narrative: Date of service 06/13/2021 Reason for consultation: Chest pain, positive troponins Requesting provider: Abran Rollins History: Patient is a 66-year-old male who has an extensive cardiac history includ
--- NOTE | 2021-06-13 18:36 | PC.NURSE ---
This patient, Sebastien Pineda, was transferred to [labor employment associate] on 06/13/21 at 1730. Personal belongings sent with patient. Report given to [PHYLLIS]. Appropriate documentation sent with patient.
--- NOTE | 2021-06-13 18:37 | PC.NURSE ---
This patient, Sebastien Pineda, was transferred to [[facility] ] on 06/13/21 at . Personal belongings sent with patient. Report given to [Tonya ]. Appropriate documentation sent with patient.
--- NOTE | 2021-06-13 18:42 | P.PCNCC_ITS ---
Cardiac Cath Procedure Note Date of procedure:: 06/13/21 Performing physician:: Chetan Cordoba MD Assessment and Plan Additional Plan PROCEDURE 1. LHC and Coronary angiogram 2. PCI to Culprit lesion of NSTEMI RCA with Aspiration thrombectomy and balloon angioplasty PROVIDER Chetan Cordoba MD INDICATION NSTEMI HISTORY 66 YRs old male presented with COVID pneumonia and acute chest pain non radiating, with Dynamic EKG changes and rising troponin PROCEDURE DETAILS Consent obtained, Time out done, Patient draped and prepped in sterile fashion. Access obtained in rt radial with US guidance Diagnostic coronary angiogram and LHC was done with TIG4 DIAGNOSTIC ANGIOGRAM Left main: Normal and gives LAD and LCX LAD: proximal 50% stenosis, gives large D1 and no obstructive disease in remaining LAD or Diagonal LCX: Large vessel and gives large early OM1. LCX and OM1 with no obstructive disease RCA: mid RCA acute total occlusion, occluded stents in mid to distal RCA. RCA is dominant vessel gives PAD and rPL. Proximal PDA with 70% stenosis. HEMODYNAMICS Aorta: 140/100 LV 140/20 PCI DETAILS # 1 Lesion, mid RCA Pre-intervention: mid RCA acute stent thrombosis and restenosis, Hx of Stents MORA > 2 years, DELROY 0 flow, thrombus, Class C Guide catheter: JR4, guideliner used for support Guide wire: Samurai positioned into rPL, Balloon angioplasty was done with Emerge 2.5 * 12 then 3.5 * 15 [place] ba lloon at 26 JOSE Aspiration thrombectomy was done with Pneumpra catheter Post intervention DELROY 3 flow and residual 20% stenosis # 2 Lesion Proximal rPL Pre-intervention: proximal rPL 70 to 80% stenosis Guide catheter: JR4, guideliner used for support Guide wire: Samurai positioned into rPL, Balloon angioplasty was done with Emerge 2.25 * 12 Post intervention DELROY 3 flow and residual 30% stenosis Because of diffuse disease discrepancy of in vessel diameter between proximal rPL and distal RCA, which make it technically challenging and outcome will not be optimal. He also had recurrent ISR. He was stable and chest pain free at end of procedure. COMPLICATION None Catheters and wires removed and TR band applied with adequate hemostasis CONCLUSION Successful PCI to acute Instent thrombosis and restenosis of mid RCA stent with balloon angioplasty and aspiration thrombectomy PTCA to proximal rPL stenosis with 2.25 mm balloon RECOMMENDATION DAPT Consider anticoagulation with heparin for 48 hours giving thrombus burden in distal vessels.
[2021-06-13 18:54] LABS: Activated Clotting Time 279 SEC (74-137)
--- NOTE | 2021-06-13 19:35 | PC.NURSE ---
This patient, Sebastien Pineda, was received from [facility] on 06/13/21 at 1935. Patient/family oriented to unit policies and routines.
[2021-06-13] MEDS: MELATONIN 5 MG TABLET PO (20:25)
[2021-06-13] MEDS: REMDESIVIR 100 MG/NS 250 ML 100 MG/250 ML BAG 250 MG IVPB (20:46)
[2021-06-13 23:15] LABS: Basophils Percent Auto 0.3 % (0.2-1.2); Hematocrit 42.4 % (42.0-52.0); Hemoglobin 13.7 g/dL (14.0-18.0); Immature Granulocyte Absolute 0.34 K/mm3 (0.00-0.031); Immature Granulocyte Percent A 4.6 % (0-0.5); Lymphocytes Absolute Auto 0.33 K/mm3 (0.9-3.2); Lymphocytes Percent Auto 4.4 % (18.3-44.2); Mean Corpuscular HGB Conc 32.3 g/dl (32-36); Mean Corpuscular Hemoglobin 28.8 pg (26-34); Mean Corpuscular Volume 89.1 fl (80-100); Mean Platelet Volume 9.8 fl (7.4-10.4); Monocytes Absolute Auto 0.2 K/mm3 (0.1-0.6); Monocytes Percent Auto 2.4 % (2.6-8.5); Neutrophils Absolute Auto 6.6 K/mm3 (1.3-6.7); Neutrophils Percent Auto 88.3 % (45.5-73.1); Platelet Count Result 253 k/mm3 (150-375); Red Blood Count 4.76 M/mm3 (4.6-6.20); Red Cell Distribution Width 13.6 % (11.5-14.5); White Blood Count 7.4 K/mm3 (4.5-10.0)
[2021-06-13 23:25] LABS: INR 1.2; Prothrombin Time 14.6 Seconds (11.1-14.7)
[2021-06-13 23:26] LABS: Partial Thromboplastin Time 34.6 SECONDS (22.3-36.8)
[2021-06-14] VITALS (18 sets, daily range): BP systolic 115–135; BP diastolic 61–97; PULSE 70–88; RESP 14–20; TEMP 36.3–37.2; O2SAT 93–99
--- NOTE | 2021-06-14 | ECHO_ITS ---
Patient Info Name: Sebastien Pineda Age: 66 years : 1955 Gender: Male Ht: 65 in Wt: 204 lbs BSA: 2.10 m2 HR: 78 bpm BP: 129 / 88 mmHg Heart Rhythm: Sinus Rhythm Technical Quality: Fair Exam Date: 06/14/2021 8:36 AM Exam Location: [facility] Patient Status: Inpatient Admit Date: 06/08/2021 Staff Ordering Physician: Abran Rollins Kinesiologist: Jeane Leal RDCS Attending Provider: Saumya Kim PA-C Referring Physician: Ayo WHITE; Exam Type: CA echo doppler color flow Study Info Indications - fluid status Complete two-dimensional, color flow and Doppler transthoracic echocardiogram is performed. Summary 1. Complete two-dimensional, color flow and Doppler transthoracic echocardiogram is performed. 2. Left ventricular chamber dimension is moderately enlarged. 3. Left ventricular systolic function is normal, estimated at 40-45%. 4. The left ventricular diastolic function is grade I diastolic dysfunction. 5. E/e' 6.0 is normal. 6. There is mild aortic valve sclerosis. 7. There is mild mitral valve calcification. 8. There is trace tricuspid valve regurgitation. 9. No pulmonary hypertension, estimated pulmonary arterial systolic pressure is 11 mmHg. 10. Normal inferior vena cava with >50% collapse upon inspiration consistent with normal right atrial pressure, 5 mmHg. Left Ventricle Left ventricular chamber dimension is moderately enlarged. Left ventricular systolic function is normal, estimated at 40-45%. There is no increased left ventricular wall thickness. Left ventricular septal wall motion is normal. The left ventricular diastolic function is grade I diastolic dysfunction. E/e' 6.0 is normal. Right Ventricle Right ventricular chamber dimension is normal. Right ventricular systolic function is normal. Left Atria Left atrial chamber dimension is normal. Right Atria Right atrial chamber dimension is normal. Atrial Septum Intact interatrial septum visualized by color flow imaging. Aortic Valve The aortic valve is trileaflet. There is mild aortic valve sclerosis. There is no aortic valve stenosis. There is no aortic valve regurgitation. Pulmonic Valve The pulmonic valve is normal. There is no pulmonic valve stenosis. There is no pulmonic regurgitation. Mitral Valve The mitral valve has normal leaflets. There is no mitral valve stenosis. There is no mitral valve regurgitation. There is mild mitral valve calcification. Tricuspid Valve The tricuspid valve leaflets are normal. There is no significant tricuspid valve stenosis. There is trace tricuspid valve regurgitation. No pulmonary hypertension, estimated pulmonary arterial systolic pressure is 11 mmHg. Pericardium/Pleural The pericardium appears normal. There is no pericardial effusion. Inferior Vena Cava Normal inferior vena cava with >50% collapse upon inspiration consistent with normal right atrial pressure, 5 mmHg. Aorta The aortic root size at the sinus of Valsalva is normal. The prox ascending aorta size is normal. Left Ventricular Outflow Tract Name Value Normal LVOT 2D LVOT Diameter 2.0 cm LVOT Doppler
--- NOTE | 2021-06-14 05:11 | ECG_ITS ---
Measurements Intervals [place] Rate: 80 P: 35 MA: 136 QRS: 24 QRSD: 102 T: 137 QT: 431 QTc: 499 Interpretive Statements SINUS RHYTHM INFERIOR ST ELEVATION- CONSIDER ACUTE INFARCT WITH RECIPROCAL CHANGES IN HIGH LATERAL LEADS ABNORMAL ECG Electronically Signed On 06-14-2021 10:06:51 DIE SET UP WORKER by Ari Anderson D.O.
[2021-06-14] MEDS: ALBUTEROL SULFATE (*SP) AEROSOL 1 PUFF 2 PUFF INHALATION ×4 (05:38→20:53)
[2021-06-14 06:23] LABS: Basophils Percent Auto 0.2 % (0.2-1.2); Hematocrit 44.9 % (42.0-52.0); Hemoglobin 14.3 g/dL (14.0-18.0); Immature Granulocyte Absolute 0.53 K/mm3 (0.00-0.031); Lymphocytes Absolute Auto 0.61 K/mm3 (0.9-3.2); Lymphocytes Percent Auto 6.9 % (18.3-44.2); Mean Corpuscular HGB Conc 31.8 g/dl (32-36); Mean Corpuscular Hemoglobin 28.6 pg (26-34); Mean Corpuscular Volume 89.8 fl (80-100); Monocytes Absolute Auto 0.4 K/mm3 (0.1-0.6); Monocytes Percent Auto 4.9 % (2.6-8.5); Neutrophils Absolute Auto 7.3 K/mm3 (1.3-6.7); Platelet Count Result 300 k/mm3 (150-375); Red Cell Distribution Width 13.6 % (11.5-14.5); White Blood Count 8.9 K/mm3 (4.5-10.0)
[2021-06-14 06:38] LABS: Alanine Aminotransferase 115 U/L (4-50); Albumin Level 3.3 g/dL (3.5-5.1); Alkaline Phosphatase 127 U/L (38-126); Anion Gap 6 mmol/L (8-16); Aspartate Amino Transferase 89 U/L (17-59); Bilirubin,Total 0.6 mg/dL (0.2-1.3); Blood Urea Nitrogen 24 mg/dL (9-20); CRP 4.9 mg/dL (<1.0); Calcium 8.4 mg/dL (8.4-10.2); Carbon Dioxide 32 mmol/L (22-30); Chloride 98 mmol/L (98-107); D Dimer 1.63 ug/mL (<0.48); Estimated CRCL calculation 83 ml/min; Estimated Glomerular Filt Rate > 60; Glucose 126 mg/dL (65-110); Lactate Dehydrogenase 1264 U/L (313-618); Magnesium 2.1 mg/dL (1.6-2.3); Potassium 4.5 mmol/L (3.4-5.0); Sodium 136 mmol/L (137-145)
[2021-06-14] MEDS: HEPARIN SODIUM 5,000 UNITS/ML VIAL 4000 UNITS IV PUSH (07:17)
[2021-06-14 08:26] LABS: Hepatitis B Surface Antigen Negative (Negative)
[2021-06-14 08:32] LABS: HAV RESULT Negative (Negative); Hepatitis B Core IgM Result Negative (Negative)
[2021-06-14 08:44] LABS: Hepatitis C Virus Antibody Negative (Negative)
[2021-06-14] MEDS: carvediloL 25 MG TABLET PO ×2 (08:47→21:10)
[2021-06-14] MEDS: ASPIRIN 81 MG CHEWABLE TABLET PO (08:48)
[2021-06-14] MEDS: guaiFENesin 12 HR 600 MG TABCR PO ×2 (08:49→21:10)
[2021-06-14] MEDS: ROSUVASTATIN 10 MG TABLET 40 MG PO (08:50)
[2021-06-14] MEDS: TICAGRELOR 90 MG TABLET PO ×2 (08:51→21:10)
--- NOTE | 2021-06-14 09:10 | PM.PNCARD ---
Progress Note: A&P Assessment and Plan (1) Acute coronary syndrome: Code(s): I24.9 - Acute ischemic heart disease, unspecified <ROCHELLE You - Last Filed: 06/14/21 10:08> Status: Acute <ROCHELLE You - Last Filed: 06/14/21 10:08> Assessment and Plan: Extensive CAD history. Troponins were found to be elevated yesterday, and patient had complaints of chest pain. Therefore, coronary angiogram was recommended. Patient was taken to the cardiac cath lab nurse last evening for left heart catheterization. Patient was found to have acute InStent thrombosis and restenosis of a previously placed mid RCA stent. Aspiration thrombectomy and balloon angioplasty were performed. Balloon angioplasty was also performed on the 70-80% lesion in the proximal RPL, 30% residual stenosis. Today, not experiencing any further chest pain. Anticoagulation with heparin for 48 hours Continue dual anti-platelet therapy with aspirin, Brilinta. <ROCHELLE You - Last Filed: 06/14/21 10:08> (2) Pneumonia due to COVID-19 virus: Code(s): U07.1 - COVID-19; J12.82 - Pneumonia due to coronavirus disease 2019 <ROCHELLE You - Last Filed: 06/14/21 10:08> Status: Acute <ROCHELLE Yuo - Last Filed: 06/14/21 10:08> Assessment and Plan: Per hospitalist <ROCHELLE You - Last Filed: 06/14/21 10:08> (3) CAD (coronary artery disease): Code(s): I25.10 - Atherosclerotic heart disease of [place] coronary artery without angina pectoris <ROCHELLE You - Last Filed: 06/14/21 10:08> Status: Acute <ROCHELLE You - Last Filed: 06/14/21 10:08> Assessment and Plan: As detailed above <ROCHELLE You - Last Filed: 06/14/21 10:08> (4) Ischemic cardiomyopathy: Code(s): I25.5 - Ischemic cardiomyopathy <RAMIRO YouC - Last Filed: 06/14/21 10:08> Status: Acute <ROCHELLE You - Last Filed: 06/14/21 10:08> Assessment and Plan: Previous ejection fraction noted to be 42% by nuclear according to history. Repeat echocardiogram is pending. <ROCHELLE You - Last Filed: 06/14/21 10:08> (5) COPD (chronic obstructive pulmonary disease): Code(s): J44.9 - Chronic obstructive pulmonary disease, unspecified <Latasha Bueno APN-C - Last Filed: 06/14/21 10:08> Status: Acute <RAMIRO YouC - Last Filed: 06/14/21 10:08> (6) Essential hypertension: Code(s): I10 - Essential (primary) hypertension <RAMIRO YouC - Last Filed: 06/14/21 10:08> Status: Acute <Latasha Bueno APN-C - Last Filed: 06/14/21 10:08> Assessment and Plan: Continue current meds. <ROCHELLE You - Last Filed: 06/14/21 10:08> (7) Hyperlipidemia LDL goal <70: Code(s): E78.5 - Hyperlipidemia, unspecified <Latasha Bueno APN-C - Last Filed: 06/14/21 10:08> Status: Acute <RAMIRO YouC - Last Filed: 06/14/21 10:08> Assessment and Plan: Continue high-dose statin <Latasha Bueno APN-C - Last Filed: 06/14/21 10:08> (8) Abdominal aortic aneurysm: Code(s): I71.4 - Abdominal aortic aneurysm, without rupture <RAMIRO YouC - Last Filed: 06/14/21 10:08> Status: Acute <RAMIRO YouC - Last Filed: 06/14/21 10:08> Assessment and Plan: Measured at 3.8 cm <Latasha Bueno, NUCLEAR MEDICINE CHIEF TECHNOLOGIST-C - Last Filed: 06/14/21 10:08> Additional Plan I have seen and examined the patient and agree with the assessment and plan of the nurse practitioner. patient suffered acute inferior KS yesterday and was taken to the cath lab nurse and balloon angioplasty of right posterolateral branch was done. His right coronary arteries covert with metal jacket. Continue aspirin, Brilinta and heparin to complete 48 hours. he does have a history of ischemic cardiomyopathy and last ejecti
[2021-06-14] MEDS: ACETAMINOPHEN 325 MG TABLET 650 MG PO (11:29)
[2021-06-14] MEDS: ALPRAZolam (*CRX) 0.125 MG TABLET PO ×2 (11:31→21:10)
--- NOTE | 2021-06-14 13:35 | P.PNIM_ITS ---
Progress Note: A&P Assessment and Plan (1) Acute hypoxemic respiratory failure: Code(s): J96.01 - Acute respiratory failure with hypoxia Status: Acute Assessment and Plan: * Secondary to COVID pneumonia with concomitant bacterial pneumonia. * Continue supplemental oxygen as needed with goal saturation 92% or above. * Saturations in the high 80s when sitting at rest * Currently on 2L sating 92%, was able to titrate to RA * Plan as detailed below * No PE on CTA (2) Pneumonia due to COVID-19 virus: Code(s): U07.1 - COVID-19; J12.82 - Pneumonia due to coronavirus disease 2018 Status: Acute Assessment and Plan: * Positive COVID test with home kit 12 days prior to presentation. * repeat CXR showed Extensive bibasilar pneumonia with interval improvement in right upper lobe. * CTA showed diffuse lung disease consistent with COVID pneumonia and more dense consolidation in the right upper lobe raising concern for superimposed bacterial pneumonia. * Confirmatory PCR testing positive from test 06/09/2021 * Continue remdesivir #5 extended for 5 more days * LFTs are elevated AST/ALT 135/176 * Continue dexamethasone 6 mg daily. #5 today. Changed to IV BID * Continue Azithromycin, Ceftriaxone has been DC'd * Supportive care to include bronchodilators, expectorants, antipyretics, incentive spirometry * Supplemental O2 as needed. wean to maintain saturation above 92% * Continue isolation precautions * Patient has not been vaccinated for COVID-19 due to history of Guillain-[place] syndrome at age 14 * inflammatory markers: CRP 4.7, LDH 1386, Dimer 3.75, Ferritin 1140 (3) Lobar pneumonia: Code(s): J18.1 - Lobar pneumonia, unspecified organism Status: Acute Assessment and Plan: * See above. * Repeat CXR showed stable pneumonia 06/12/21 * Continue azithromycin, DC'd ceftriaxone at this time Day 5 * Vancomycin and Zosyn discontinued 06/10. Pt does not have risk factors and has not recently been hospitalized. * Preliminary blood cultures negative * Sputum culture shows gram positive cocci, still preliminary (4) CAD (coronary artery disease): Code(s): I25.10 - Atherosclerotic heart disease of [place] coronary artery without angina pectoris Status: Acute Assessment and Plan: * Chest pain noted today * Continue home regimen including aspirin, rosuvastatin, carvedilol * Hold plavix since he is on lovenox * Trops 7.730, repeat is pending * Repeat EKG no significant changes from 2017 * Talked to Dr. Anderson about this and added full dose lovenox, and need to look for any new wall abnormalities (5) CHF (congestive heart failure), NYHA class II: Code(s): I50.9 - Heart failure, unspecified Status: Acute Assessment and Plan: * Echo read as EF of 40-45% with grade 1 diastolic dysfunction * Could be fluid overloaded, BNP high on the , current BNP 4780 * One dose of lasix 40mg IV * Could be going into an acute exacerbation with noted chest pain, and increased shortness of breath * Continue carvedilol * Monitor volume status (6) Insomnia: Code(s): G47.00 - Insomnia, unspecified Status: Acute Assessment and Plan: * Probably from the steroids * Melatonin * Increase Xanax (7) Chest pain: Code(s): R07.9 - Chest pain, unspecified Status: Acute Assessment and Plan: * Sternal chest pain with no radiation * Extensive CAD history * Does have a significant cough * Trop elevated
--- NOTE | 2021-06-14 13:35 | PM.IMPN ---
Progress Note: A&P Assessment and Plan (1) Acute hypoxemic respiratory failure: Code(s): J96.01 - Acute respiratory failure with hypoxia Status: Acute Assessment and Plan: Secondary to COVID pneumonia with concomitant bacterial pneumonia. Continue supplemental oxygen as needed with goal saturation 92% or above. Saturations in the high 80s when sitting at rest Currently on 2L sating 92%, was able to titrate to RA Plan as detailed below No PE on CTA (2) Pneumonia due to COVID-19 virus: Code(s): U07.1 - COVID-19; J12.82 - Pneumonia due to coronavirus disease 2018 Status: Acute Assessment and Plan: Positive COVID test with home kit 12 days prior to presentation. repeat CXR showed Extensive bibasilar pneumonia with interval improvement in right upper lobe. CTA showed diffuse lung disease consistent with COVID pneumonia and more dense consolidation in the right upper lobe raising concern for superimposed bacterial pneumonia. Confirmatory PCR testing positive from test 06/09/2021 Continue remdesivir #5 extended for 5 more days LFTs are elevated AST/ALT 135/176 Continue dexamethasone 6 mg daily. #5 today. Changed to IV BID Continue Azithromycin, Ceftriaxone has been DC'd Supportive care to include bronchodilators, expectorants, antipyretics, incentive spirometry Supplemental O2 as needed. wean to maintain saturation above 92% Continue isolation precautions Patient has not been vaccinated for COVID-19 due to history of Guillain-[place] syndrome at age 14 inflammatory markers: CRP 4.7, LDH 1386, Dimer 3.75, Ferritin 1140 (3) Lobar pneumonia: Code(s): J18.1 - Lobar pneumonia, unspecified organism Status: Acute Assessment and Plan: See above. Repeat CXR showed stable pneumonia 06/12/21 Continue azithromycin, DC'd ceftriaxone at this time Day 5 Vancomycin and Zosyn discontinued 06/10. Pt does not have risk factors and has not recently been hospitalized. Preliminary blood cultures negative Sputum culture shows gram positive cocci, still preliminary (4) CAD (coronary artery disease): Code(s): I25.10 - Atherosclerotic heart disease of [place] coronary artery without angina pectoris Status: Acute Assessment and Plan: Chest pain noted today Continue home regimen including aspirin, rosuvastatin, carvedilol Hold plavix since he is on lovenox Trops 7.730, repeat is pending Repeat EKG no significant changes from [address] Anderson about this and added full dose lovenox, and need to look for any new wall abnormalities (5) CHF (congestive heart failure), NYHA class II: Code(s): I50.9 - Heart failure, unspecified Status: Acute Assessment and Plan: Echo read as EF of 40-45% with grade 1 diastolic dysfunction Could be fluid overloaded, BNP high on the 24th, current BNP 4780 One dose of lasix 40mg IV Could be going into an acute exacerbation with noted chest pain, and increased shortness of breath Continue carvedilol Monitor volume status (6) Insomnia: Code(s): G47.00 - Insomnia, unspecified Status: Acute Assessment and Plan: Probably from the steroids Melatonin Increase Xanax (7) Chest pain: Code(s): R07.9 - Chest pain, unspecified Status: Acute Assessment and Plan: Sternal chest pain with no radiation Extensive CAD history Does have a significant cough Trop elevated at 7.730, will trend Echo EF of 40-45% with grade 1 diastolic dysfunction BNP 4780 Cardiology consult thank you for your help, review case with who was listed on the call list, Dr. Anderson, who stated that this is all probably related to the history and also to covid. He recommended to get the echo and to see if there is any wall abnormalities, prior to an official consult Heart healthy diet cardiac catheterization performed yesterday 06/13/2021 and a thrombect
[2021-06-14 14:06] LABS: Partial Thromboplastin Time 77.5 SECONDS (22.3-36.8)
[2021-06-14] MEDS: ONDANSETRON INJ 4 MG/2 ML VIAL IV PUSH (17:34)
[2021-06-14] MEDS: MELATONIN 5 MG TABLET PO (21:10)
[2021-06-14] MEDS: REMDESIVIR 100 MG/NS 250 ML 100 MG/250 ML BAG 250 MG IVPB (21:10)
[2021-06-14 21:16] LABS: Partial Thromboplastin Time 50.7 SECONDS (22.3-36.8)
[2021-06-14 22:12] LABS: Vancomycin Trough < 5.0 ug/mL (10.0-20.0)
[2021-06-15] VITALS (13 sets, daily range): BP systolic 101–132; BP diastolic 67–78; PULSE 68–80; RESP 18–22; TEMP 36.1–36.6; O2SAT 91–95
[2021-06-15] MEDS: HEPARIN SODIUM 5,000 UNITS/ML VIAL 4000 UNITS IV PUSH (00:14)
[2021-06-15] MEDS: ALBUTEROL SULFATE (*SP) AEROSOL 1 PUFF 2 PUFF INHALATION ×4 (02:27→20:55)
[2021-06-15 06:40] LABS: Basophils Percent Auto 0.3 % (0.2-1.2); Hematocrit 41.6 % (42.0-52.0); Hemoglobin 13.5 g/dL (14.0-18.0); Immature Granulocyte Absolute 0.59 K/mm3 (0.00-0.031); Immature Granulocyte Percent A 7.5 % (0-0.5); Lymphocytes Absolute Auto 0.63 K/mm3 (0.9-3.2); Lymphocytes Percent Auto 8.1 % (18.3-44.2); Mean Corpuscular HGB Conc 32.5 g/dl (32-36); Mean Corpuscular Hemoglobin 29.2 pg (26-34); Mean Corpuscular Volume 89.8 fl (80-100); Monocytes Absolute Auto 0.4 K/mm3 (0.1-0.6); Monocytes Percent Auto 5.4 % (2.6-8.5); Neutrophils Absolute Auto 6.2 K/mm3 (1.3-6.7); Neutrophils Percent Auto 78.7 % (45.5-73.1); Platelet Count Result 318 k/mm3 (150-375); Red Blood Count 4.63 M/mm3 (4.6-6.20); Red Cell Distribution Width 13.7 % (11.5-14.5); White Blood Count 7.8 K/mm3 (4.5-10.0)
[2021-06-15 06:47] LABS: INR 1.2; Prothrombin Time 14.8 Seconds (11.1-14.7)
[2021-06-15 06:54] LABS: Alanine Aminotransferase 98 U/L (4-50); Albumin Level 3.2 g/dL (3.5-5.1); Alkaline Phosphatase 117 U/L (38-126); Anion Gap 6 mmol/L (8-16); Aspartate Amino Transferase 61 U/L (17-59); Bilirubin,Total 0.6 mg/dL (0.2-1.3); Blood Urea Nitrogen 25 mg/dL (9-20); Calcium 8.3 mg/dL (8.4-10.2); Carbon Dioxide 28 mmol/L (22-30); Chloride 101 mmol/L (98-107); Estimated CRCL calculation 83 ml/min; Estimated Glomerular Filt Rate > 60; Glucose 135 mg/dL (65-110); Magnesium 2.3 mg/dL (1.6-2.3); Potassium 4.2 mmol/L (3.4-5.0); Sodium 135 mmol/L (137-145)
[2021-06-15] MEDS: ASPIRIN 81 MG CHEWABLE TABLET PO (07:55)
[2021-06-15] MEDS: guaiFENesin 12 HR 600 MG TABCR PO ×2 (07:58→21:02)
[2021-06-15] MEDS: carvediloL 25 MG TABLET PO ×2 (08:00→21:02)
[2021-06-15] MEDS: TICAGRELOR 90 MG TABLET PO ×2 (08:00→21:02)
[2021-06-15] MEDS: ROSUVASTATIN 10 MG TABLET 40 MG PO (08:00)
--- NOTE | 2021-06-15 12:07 | PM.PNCARD ---
Progress Note: A&P Additional Plan 66-year-old man with coronary artery disease and prior stenting of the right coronary artery. Presumably in the setting of hypercoagulability related to coronavirus he developed an abrupt stent thrombosis of the RCA. Emergency PCI was performed of this is detailed in the procedure note. Asymptomatic today. I will stop the IV heparin as it has been 48 hours since the PCI. Barring any cardiac issues discharged tomorrow is okay with me. Establish follow-up is already occurring with his outside software developer as such follow-up in our office will not be scheduled as well. Rene Crowe MD [facility] Subjective Date/time seen: Date of service: 06/15/21 12:07 Interval history: Follow-up visit in this 66-year-old man with: Coronary artery disease with previous stenting of the right coronary artery. Patient admitted with coronavirus pneumonia and in that setting developed acute thrombotic occlusion of the previously stented vessel. Emergency thrombectomy and PTCA had to be performed. Extensive thrombotic burden in the vessel. Patient is asymptomatic today no ischemic symptoms since the PCI couple of days ago. Remains on IV heparin as well as dual anti-platelet therapy. Exam Const: General: comfortable and no acute distress HENMT: Mouth: Yes moist mucous membranes Eyes: Sclera: sclerae normal Pupils: Equal, round and reactive pupils present Neck: Neck: supple and no JVD Resp: Effort & Inspection: normal respiratory effort Auscultation: clear to auscultation bilaterally Cardio: Rate: regular rate Rhythm: regular rhythm Other: No murmur S4 is audible GI: GI Palp: Yes Soft to palpation Auscultation: normal bowel sounds Skin: General skin exam: normal color Neuro: Cognition (Neuro): normal cognition Extrem: General: normal to inspection Objective Data Vital Signs Vital Signs: Vital Signs - 24 hr 06/14/21 14:00 06/14/21 16:00 06/14/21 18:00 Temperature 36.7 C Pulse Rate 79 70 85 Respiratory Rate 18 Blood Pressure 116/84 Pulse Oximetry 97 06/14/21 20:00 06/14/21 20:53 06/14/21 21:10 Temperature 36.6 C Pulse Rate 79 78 Respiratory Rate 20 Blood Pressure 129/89 Pulse Oximetry 93 94 06/14/21 22:00 06/15/21 00:00 06/15/21 02:00 Temperature 36.6 C Pulse Rate 77 80 75 Respiratory Rate 18 Blood Pressure 101/68 Pulse Oximetry 93 06/15/21 04:00 06/15/21 08:00 06/15/21 08:42 Temperature 36.1 C L 36.6 C Pulse Rate 68 72 Respiratory Rate 18 20 Blood Pressure 117/68 126/78 Pulse Oximetry 92 91 93 06/15/21 10:00 Temperature Pulse Rate 75 Respiratory Rate Blood Pressure Pulse Oximetry Intake/Output Intake/Output: Intake & Output 06/12/21 06/13/21 06/14/21 06/15/21 23:59 23:59 23:59 23:59 Intake Total 3320 2540 1450 1650 Output Total 2951 2750 2750 1999 Balance 346 -998 -9797 -231 Meds/Results Medications: Active Medications Generic Name Dose Route Start Last Admin Trade Name Freq PRN Reason Stop Dose Admin Acetaminophen 650 mg 06/08/21 18:32 06/14/21 11:29 Acetaminophen 325 Mg Tablet PO 650 mg Q4H PRN Administration Mild Pain (1-3) or Fever Albuterol 2 puff 06/10/21 14:00 06/15/21 08:39 Albuterol Sulfate (*Sp) Aerosol 1 Puff INHALATION 2 puff Q6HRT PAULINO Administration Alprazolam 0.125 mg 06/12/21 13:05 06/14/21 21:10 Alprazolam (*Crx) 0.125 Mg Tablet PO 0.125 mg TID PRN Administration Anxiety Aspirin 81 mg 06/13/21 08:00 06/15/21 07:55 Aspirin 81 Mg Chewable Tablet PO 81 mg DAILY@0800 PAULINO Administration Carvedilol 25 mg 06/13/21 09:40 06/15/21 08:00 Carvedilol 25 Mg Tablet PO 25 mg Q12HR PAULINO Administration Dexamethasone Sodium Phosphate 6 mg 06/13/21 17:00 06/15/21 08:00 Dexamethasone Sod Phos Inj 10 Mg/Ml 1 Ml Vial IV PUSH 06/21/21 09:01 6 mg BID PAULINO Administration Guaifenesin 600 mg 06/10/21 21:00 06/15/21 07:58 Guaifen
--- NOTE | 2021-06-15 13:03 | PCNWS ---
Weekly nutritional screen. Patient is tolerating current diet with adequate intake. No weight loss reported. No nutritional needs at this time.
--- NOTE | 2021-06-15 15:00 | PM.IMPN ---
Progress Note: A&P Assessment and Plan (1) Acute hypoxemic respiratory failure: Code(s): J96.01 - Acute respiratory failure with hypoxia Status: Acute Assessment and Plan: Secondary to COVID pneumonia with concomitant bacterial pneumonia. Continue supplemental oxygen as needed with goal saturation 92% or above. Saturations in the high 80s when sitting at rest On RA sating 94% Plan as detailed below No PE on CTA (2) Pneumonia due to COVID-19 virus: Code(s): U07.1 - COVID-19; J12.82 - Pneumonia due to coronavirus disease 2018 Status: Acute Assessment and Plan: Positive COVID test with home kit 12 days prior to presentation. repeat CXR showed Extensive bibasilar pneumonia with interval improvement in right upper lobe. CTA showed diffuse lung disease consistent with COVID pneumonia and more dense consolidation in the right upper lobe raising concern for superimposed bacterial pneumonia. Confirmatory PCR testing positive from test 06/09/2021 Continue remdesivir #6 extended for 5 more days LFTs are elevated AST/ALT 135/176 Continue dexamethasone 6 mg daily. #6 today. Changed to IV BID Continue Azithromycin, Ceftriaxone has been DC'd Supportive care to include bronchodilators, expectorants, antipyretics, incentive spirometry Supplemental O2 as needed. wean to maintain saturation above 92% Continue isolation precautions Patient has not been vaccinated for COVID-19 due to history of Guillain-[place] syndrome at age 14 inflammatory markers: CRP 4.7, LDH 1386, Dimer 3.75, Ferritin 1140 (3) Lobar pneumonia: Code(s): J18.1 - Lobar pneumonia, unspecified organism Status: Acute Assessment and Plan: See above. Repeat CXR showed stable pneumonia 06/12/21 Continue azithromycin, DC'd ceftriaxone at this time Day 5 Vancomycin and Zosyn discontinued 06/10. Pt does not have risk factors and has not recently been hospitalized. Preliminary blood cultures negative Sputum culture shows gram positive cocci, still preliminary (4) CAD (coronary artery disease): Code(s): I25.10 - Atherosclerotic heart disease of [place] coronary artery without angina pectoris Status: Acute Assessment and Plan: Chest pain no more today Continue home regimen including aspirin, rosuvastatin, carvedilol Hold plavix since he is on lovenox On brilinta and aspirin Trops 7.730, Repeat EKG no significant changes from [address] 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 (5) CHF (congestive heart failure), NYHA class II: Code(s): I50.9 - Heart failure, unspecified Status: Acute Assessment and Plan: Echo read as EF of 40-45% with grade 1 diastolic dysfunction Could be fluid overloaded, BNP high on the 24th, current BNP 4780 One dose of lasix 40mg IV Could be going into an acute exacerbation with noted chest pain, and increased shortness of breath Continue carvedilol Monitor volume status (6) Insomnia: Code(s): G47.00 - Insomnia, unspecified Status: Acute Assessment and Plan: Probably from the steroids Melatonin Increase Xanax (7) Chest pain: Code(s): R07.9 - Chest pain, unspecified Status: Acute Assessment and Plan: Sternal chest pain with no radiation Extensive CAD history Does have a significant cough Trop elevated at 7.730, will trend Echo EF of 40-45% with grade 1 diastolic dysfunction BNP 4780 Cardiology consult thank you for your help, review case with who was listed on the call list, Dr. Anderson, who stated that this is all probably related to the history and also to covid. He recommended to get the echo and to see if there is any wall abnormalities, prior to an official consult Heart healthy diet cardiac catheterization performed 06/13/2021 and a thrombecto
--- NOTE | 2021-06-15 15:00 | P.PNIM_ITS ---
Progress Note: A&P Assessment and Plan (1) Acute hypoxemic respiratory failure: Code(s): J96.01 - Acute respiratory failure with hypoxia Status: Acute Assessment and Plan: * Secondary to COVID pneumonia with concomitant bacterial pneumonia. * Continue supplemental oxygen as needed with goal saturation 92% or above. * Saturations in the high 80s when sitting at rest * On RA sating 94% * Plan as detailed below * No PE on CTA (2) Pneumonia due to COVID-19 virus: Code(s): U07.1 - COVID-19; J12.82 - Pneumonia due to coronavirus disease 2018 Status: Acute Assessment and Plan: * Positive COVID test with home kit 12 days prior to presentation. * repeat CXR showed Extensive bibasilar pneumonia with interval improvement in right upper lobe. * CTA showed diffuse lung disease consistent with COVID pneumonia and more dense consolidation in the right upper lobe raising concern for superimposed bacterial pneumonia. * Confirmatory PCR testing positive from test 06/09/2021 * Continue remdesivir #6 extended for 5 more days * LFTs are elevated AST/ALT 135/176 * Continue dexamethasone 6 mg daily. #6 today. Changed to IV BID * Continue Azithromycin, Ceftriaxone has been DC'd * Supportive care to include bronchodilators, expectorants, antipyretics, incentive spirometry * Supplemental O2 as needed. wean to maintain saturation above 92% * Continue isolation precautions * Patient has not been vaccinated for COVID-19 due to history of Guillain-[place] syndrome at age 14 * inflammatory markers: CRP 4.7, LDH 1386, Dimer 3.75, Ferritin 1140 (3) Lobar pneumonia: Code(s): J18.1 - Lobar pneumonia, unspecified organism Status: Acute Assessment and Plan: * See above. * Repeat CXR showed stable pneumonia 06/12/21 * Continue azithromycin, DC'd ceftriaxone at this time Day 5 * Vancomycin and Zosyn discontinued 06/10. Pt does not have risk factors and has not recently been hospitalized. * Preliminary blood cultures negative * Sputum culture shows gram positive cocci, still preliminary (4) CAD (coronary artery disease): Code(s): I25.10 - Atherosclerotic heart disease of [place] coronary artery without angina pectoris Status: Acute Assessment and Plan: * Chest pain no more today * Continue home regimen including aspirin, rosuvastatin, carvedilol * Hold plavix since he is on lovenox * On brilinta and aspirin * Trops 7.730, * Repeat EKG no significant changes from 2017 * Talked to Dr. Anderson about this and added full dose lovenox, and need to look for any new wall abnormalities * Went to labor economics teacher for a thrombectomy. (5) CHF (congestive heart failure), NYHA class II: Code(s): I50.9 - Heart failure, unspecified Status: Acute Assessment and Plan: * Echo read as EF of 40-45% with grade 1 diastolic dysfunction * Could be fluid overloaded, BNP high on the , current BNP 4780 * One dose of lasix 40mg IV * Could be going into an acute exacerbation with noted chest pain, and increased shortness of breath * Continue carvedilol * Monitor volume status (6) Insomnia: Code(s): G47.00 - Insomnia, unspecified Status: Acute Assessment and Plan: * Probably from the steroids * Melatonin * Increase Xanax (7) Chest pain: Code(s): R07.9 - Chest pain, unspecified Status: Acute Assessment and Plan: * Sternal chest pain with no radiation * Extensive CAD history * Does have a significant cough *
[2021-06-15 16:26] LABS: Partial Thromboplastin Time 63.8 SECONDS (22.3-36.8)
[2021-06-15] MEDS: REMDESIVIR 100 MG/NS 250 ML 100 MG/250 ML BAG 250 MG IVPB (21:01)
[2021-06-15] MEDS: MELATONIN 5 MG TABLET PO (21:01)
[2021-06-15] MEDS: ALPRAZolam (*CRX) 0.125 MG TABLET PO (21:01)
[2021-06-16] VITALS (12 sets, daily range): BP systolic 107–133; BP diastolic 71–82; PULSE 65–88; RESP 14–24; TEMP 36.1–36.6; O2SAT 92–96
--- NOTE | 2021-06-16 05:04 | PC.NURSE ---
This patient, Sebastien Pineda, was received from [ IMU] on 06/16/21 at 0450. Patient/family oriented to unit policies and routines
[2021-06-16 07:25] LABS: Basophils Percent Auto 0.3 % (0.2-1.2); Hematocrit 42.9 % (42.0-52.0); Immature Granulocyte Absolute 0.39 K/mm3 (0.00-0.031); Immature Granulocyte Percent A 5.5 % (0-0.5); Lymphocytes Absolute Auto 0.54 K/mm3 (0.9-3.2); Lymphocytes Percent Auto 7.6 % (18.3-44.2); Mean Corpuscular HGB Conc 32.6 g/dl (32-36); Mean Corpuscular Hemoglobin 28.7 pg (26-34); Mean Corpuscular Volume 88.1 fl (80-100); Mean Platelet Volume 9.9 fl (7.4-10.4); Monocytes Absolute Auto 0.4 K/mm3 (0.1-0.6); Monocytes Percent Auto 5.2 % (2.6-8.5); Neutrophils Absolute Auto 5.8 K/mm3 (1.3-6.7); Neutrophils Percent Auto 81.4 % (45.5-73.1); Platelet Count Result 357 k/mm3 (150-375); Red Blood Count 4.87 M/mm3 (4.6-6.20); Red Cell Distribution Width 13.8 % (11.5-14.5); White Blood Count 7.1 K/mm3 (4.5-10.0)
[2021-06-16 07:34] LABS: INR 1.2; Prothrombin Time 14.9 Seconds (11.1-14.7)
[2021-06-16 07:35] LABS: Alanine Aminotransferase 99 U/L (4-50); Albumin Level 3.2 g/dL (3.5-5.1); Alkaline Phosphatase 109 U/L (38-126); Anion Gap 8 mmol/L (8-16); Aspartate Amino Transferase 50 U/L (17-59); Bilirubin,Total 0.7 mg/dL (0.2-1.3); Blood Urea Nitrogen 26 mg/dL (9-20); Calcium 8.4 mg/dL (8.4-10.2); Carbon Dioxide 24 mmol/L (22-30); Chloride 103 mmol/L (98-107); Estimated CRCL calculation 83 ml/min; Estimated Glomerular Filt Rate > 60; Glucose 140 mg/dL (65-110); Magnesium 2.2 mg/dL (1.6-2.3); Potassium 4.2 mmol/L (3.4-5.0); Sodium 135 mmol/L (137-145)
--- NOTE | 2021-06-16 09:00 | P.PNIM_ITS ---
Progress Note: A&P Assessment and Plan (1) Acute hypoxemic respiratory failure: Code(s): J96.01 - Acute respiratory failure with hypoxia Status: Acute Assessment and Plan: * Secondary to COVID pneumonia with concomitant bacterial pneumonia. * Continue supplemental oxygen as needed with goal saturation 92% or above. * Saturations in the high 80s when sitting at rest, laying down patient sats about 94%, walking patient sats 90% * He does have an increased work of breathing however can maintain his saturations * Plan as detailed below * No PE on CTA (2) Pneumonia due to COVID-19 virus: Code(s): U07.1 - COVID-19; J12.82 - Pneumonia due to coronavirus disease 2019 Status: Acute Assessment and Plan: * Positive COVID test with home kit 12 days prior to presentation. * repeat CXR showed Extensive bibasilar pneumonia with interval improvement in right upper lobe. 06/13/21 * CTA showed diffuse lung disease consistent with COVID pneumonia and more dense consolidation in the right upper lobe raising concern for superimposed bacterial pneumonia. * Confirmatory PCR testing positive from test 06/09/2021 * Continue remdesivir #7 extended for 5 more days * LFTs are elevated AST/ALT 50/99 * Continue dexamethasone 6 mg daily. #7 today. Changed to IV BID * Continue Azithromycin, Ceftriaxone has been DC'd * Supportive care to include bronchodilators, expectorants, antipyretics, incentive spirometry * Supplemental O2 as needed. wean to maintain saturation above 92% * Continue isolation precautions * Patient has not been vaccinated for COVID-19 due to history of Guillain-[place] syndrome at age 14 * inflammatory markers: CRP 4.7, LDH 1386, Dimer 3.75, Ferritin 1140 06/14/21, repeat in the am (3) Lobar pneumonia: Code(s): J18.1 - Lobar pneumonia, unspecified organism Status: Acute Assessment and Plan: * See above. * Repeat CXR showed stable pneumonia 06/12/21 * Continue azithromycin, DC'd ceftriaxone at this time Day 5 * Vancomycin and Zosyn discontinued 06/10. Pt does not have risk factors and has not recently been hospitalized. * Preliminary blood cultures negative * Sputum culture shows gram positive cocci, growth of normal bess (4) CAD (coronary artery disease): Code(s): I25.10 - Atherosclerotic heart disease of [place] coronary artery without angina pectoris Status: Acute Assessment and Plan: * Chest pain no more today * Continue home regimen including aspirin, rosuvastatin, carvedilol * Hold plavix since he is on lovenox * On brilinta and aspirin * Trops 7.730, * Repeat EKG no significant changes from 2017 * Talked to Dr. Anderson about this and added full dose lovenox, and need to look for any new wall abnormalities * Went to factory laborer for a thrombectomy. (5) CHF (congestive heart failure), NYHA class II: Code(s): I50.9 - Heart failure, unspecified Status: Acute Assessment and Plan: * Echo read as EF of 40-45% with grade 1 diastolic dysfunction * Could be fluid overloaded, BNP high on the 24, current BNP 4780 * One dose of lasix 40mg IV * Could be going into an acute exacerbation with noted chest pain, and increased shortness of breath * Continue carvedilol * Monitor volume status (6) Insomnia: Code(s): G47.00 - Insomnia, unspecified Status: Acute Assessment and Plan: * Probably from the steroids * Melatonin * Increase Xanax (7) Chest pain: Code(s): R07.9 - Chest pain, unsp
--- NOTE | 2021-06-16 09:00 | PM.IMPN ---
Progress Note: A&P Assessment and Plan (1) Acute hypoxemic respiratory failure: Code(s): J96.01 - Acute respiratory failure with hypoxia Status: Acute Assessment and Plan: Secondary to COVID pneumonia with concomitant bacterial pneumonia. Continue supplemental oxygen as needed with goal saturation 92% or above. Saturations in the high 80s when sitting at rest, laying down patient sats about 94%, walking patient sats 90% He does have an increased work of breathing however can maintain his saturations Plan as detailed below No PE on CTA (2) Pneumonia due to COVID-19 virus: Code(s): U07.1 - COVID-19; J12.82 - Pneumonia due to coronavirus disease 2018 Status: Acute Assessment and Plan: Positive COVID test with home kit 12 days prior to presentation. repeat CXR showed Extensive bibasilar pneumonia with interval improvement in right upper lobe. 06/13/21 CTA showed diffuse lung disease consistent with COVID pneumonia and more dense consolidation in the right upper lobe raising concern for superimposed bacterial pneumonia. Confirmatory PCR testing positive from test 06/09/2021 Continue remdesivir #7 extended for 5 more days LFTs are elevated AST/ALT 50/99 Continue dexamethasone 6 mg daily. #7 today. Changed to IV BID Continue Azithromycin, Ceftriaxone has been DC'd Supportive care to include bronchodilators, expectorants, antipyretics, incentive spirometry Supplemental O2 as needed. wean to maintain saturation above 92% Continue isolation precautions Patient has not been vaccinated for COVID-19 due to history of Guillain-[place] syndrome at age 14 inflammatory markers: CRP 4.7, LDH 1386, Dimer 3.75, Ferritin 1140 06/14/21, repeat in the am (3) Lobar pneumonia: Code(s): J18.1 - Lobar pneumonia, unspecified organism Status: Acute Assessment and Plan: See above. Repeat CXR showed stable pneumonia 06/12/21 Continue azithromycin, DC'd ceftriaxone at this time Day 5 Vancomycin and Zosyn discontinued 06/10. Pt does not have risk factors and has not recently been hospitalized. Preliminary blood cultures negative Sputum culture shows gram positive cocci, growth of normal bess (4) CAD (coronary artery disease): Code(s): I25.10 - Atherosclerotic heart disease of [place] coronary artery without angina pectoris Status: Acute Assessment and Plan: Chest pain no more today Continue home regimen including aspirin, rosuvastatin, carvedilol Hold plavix since he is on lovenox On brilinta and aspirin Trops 7.730, Repeat EKG no significant changes from [address] Anderson about this and added full dose lovenox, and need to look for any new wall abnormalities Went to engineering lab technician for a thrombectomy. (5) CHF (congestive heart failure), NYHA class II: Code(s): I50.9 - Heart failure, unspecified Status: Acute Assessment and Plan: Echo read as EF of 40-45% with grade 1 diastolic dysfunction Could be fluid overloaded, BNP high on the 24, current BNP 4780 One dose of lasix 40mg IV Could be going into an acute exacerbation with noted chest pain, and increased shortness of breath Continue carvedilol Monitor volume status (6) Insomnia: Code(s): G47.00 - Insomnia, unspecified Status: Acute Assessment and Plan: Probably from the steroids Melatonin Increase Xanax (7) Chest pain: Code(s): R07.9 - Chest pain, unspecified Status: Acute Assessment and Plan: Sternal chest pain with no radiation Extensive CAD history Does have a significant cough Trop elevated at 7.730, will trend Echo EF of 40-45% with grade 1 diastolic dysfunction BNP 4780 Cardiology consult thank you for your help, review case with who was listed on the call list, Dr. Anderson, who stated that this is all probably related to the history and also to covid. He recommended to get the echo
[2021-06-16] MEDS: ROSUVASTATIN 10 MG TABLET 40 MG PO (09:35)
[2021-06-16] MEDS: TICAGRELOR 90 MG TABLET PO ×2 (09:36→20:51)
[2021-06-16] MEDS: ASPIRIN 81 MG CHEWABLE TABLET PO (09:36)
[2021-06-16] MEDS: guaiFENesin 12 HR 600 MG TABCR PO ×2 (09:36→20:51)
[2021-06-16] MEDS: carvediloL 25 MG TABLET PO ×2 (09:36→20:51)
--- NOTE | 2021-06-16 11:44 | PCRCNOTE ---
Window of time for administration has passed. See next scheduled administration.
[2021-06-16] MEDS: ALBUTEROL SULFATE (*SP) AEROSOL 1 PUFF 2 PUFF INHALATION ×2 (12:21→21:28)
[2021-06-16] MEDS: ALPRAZolam (*CRX) 0.25 MG TABLET PO ×2 (12:34→20:50)
[2021-06-16] MEDS: FUROSEMIDE INJ 40 MG/4 ML VIAL IV PUSH (12:34)
--- NOTE | 2021-06-16 12:49 | PM.PNCARD ---
Progress Note: A&P Additional Plan 66-year-old man with: Acute myocardial infarction with abrupt thrombotic occlusion of the right coronary artery which had previously been stented elsewhere. This appeared to be a thrombotic complication of coronavirus infection. He is doing well other than some persistent hypoxemia this morning. Chest does not sound like moist pulmonary rales. Suspect this is more likely left over hypoxemia because of COVID. No harm in giving him a dose of furosemide this morning. Patient is doing very well otherwise and is understandably upset that his was in the hospital with COVID and is apparently not doing well. Rene Crowe MD [facility] Subjective Date/time seen: Date of service: 06/16/21 12:49 Interval history: Follow-up visit in this 66-year-old man with: Coronary artery disease with previous stenting of the right coronary artery. Patient admitted with coronavirus pneumonia and in that setting developed acute thrombotic occlusion of the previously stented vessel. Emergency thrombectomy and PTCA had to be performed. Extensive thrombotic burden in the vessel. Patient is asymptomatic today no ischemic symptoms since the PCI couple of days ago. Remains on IV heparin as well as dual anti-platelet therapy. Date of service 06/16/2021: Had anticipated patient be discharged this morning he was kept in the hospital because of hypoxemia on room air. No other complaints. Was given a dosage of intravenous furosemide. Chest x-ray does show some right lower lobe congestion. Patient is very concerned and anxious that his is also in the hospital with coronavirus in the ICU Exam Const: General: comfortable and no acute distress HENMT: Head: normal to inspection General nose exam: Normal nares present Mouth: Yes moist mucous membranes Eyes: Sclera: sclerae normal Pupils: Equal, round and reactive pupils present Neck: Neck: supple and no JVD Resp: Effort & Inspection: normal respiratory effort Auscultation: clear to auscultation bilaterally, rales, rhonchi and diminished lung sounds Cardio: Rate: regular rate Rhythm: regular rhythm Heart sounds: no murmurs Peripheral pulses: Peripheral pulses 2+ throughout and radial pulses present Other: No murmur S4 is audible GI: Auscultation: normal bowel sounds Skin: General skin exam: normal color Other: Right wrist arterial access site free from bleeding, hematoma. Distal perfusion intact. Neuro: Cranial nerves: Yes Equal, round and reactive pupils present and Yes Normal hearing present Cognition (Neuro): normal cognition Speech: normal speech Extrem: General: normal to inspection and no edema Psych: Mental Status: mental status grossly normal Objective Data Vital Signs Vital Signs: Vital Signs - 24 hr 06/15/21 14:00 06/15/21 16:00 06/15/21 18:00 Temperature 36.6 C Pulse Rate 76 72 79 Respiratory Rate 22 H Blood Pressure 107/67 Pulse Oximetry 93 06/15/21 20:00 06/15/21 21:02 06/15/21 22:00 Temperature 36.4 C Pulse Rate 73 72 78 Respiratory Rate 18 Blood Pressure 132/67 Pulse Oximetry 94 06/16/21 00:00 06/16/21 02:00 06/16/21 04:00 Temperature 36.4 C Pulse Rate 72 68 65 Respiratory Rate 16 16 Blood Pressure 120/79 Pulse Oximetry 92 92 06/16/21 04:50 06/16/21 08:00 06/16/21 09:36 Temperature 36.1 C L 36.4 C L Pulse Rate 84 82 77 Respiratory Rate 24 H 14 Blood Pressure 133/72 125/74 Pulse Oximetry 93 95 06/16/21 12:00 06/16/21 12:22 Temperature 36.5 C Pulse Rate 84 Respiratory Rate 14 Blood Pressure 107/71 Pulse Oximetry 96 95 Intake/Output Intake/Output: Intake & Output 06/13/21 06/14/21 06/15/21 06/16/21 23:59 23:59 23:59 23:59 Intake Total 2540 1950 4070 1090 Output Total 2750 2750 4800 1200 Balance -210 -800 -730 -110 Meds/Results Medications: Active Medications Generic Name Dose Route Start Last Admin Trade Name Freq PRN Reason Stop Dose Admin A
[2021-06-16] MEDS: MELATONIN 5 MG TABLET PO (20:50)
[2021-06-16] MEDS: REMDESIVIR 100 MG/NS 250 ML 100 MG/250 ML BAG 250 MG IVPB (20:53)
[2021-06-17] VITALS (8 sets, daily range): BP systolic 105–131; BP diastolic 66–85; PULSE 66–88; RESP 14–20; TEMP 36.6–37.1; O2SAT 94–97
[2021-06-17] MEDS: ALBUTEROL SULFATE (*SP) AEROSOL 1 PUFF 2 PUFF INHALATION ×2 (02:37→12:13)
[2021-06-17 07:56] LABS: Basophils Absolute Auto 0.1 K/mm3 (0.0-0.1); Basophils Percent Auto 0.4 % (0.2-1.2); Hematocrit 46.8 % (42.0-52.0); Hemoglobin 15.5 g/dL (14.0-18.0); Immature Granulocyte Absolute 0.45 K/mm3 (0.00-0.031); Lymphocytes Absolute Auto 0.81 K/mm3 (0.9-3.2); Lymphocytes Percent Auto 7.1 % (18.3-44.2); Mean Corpuscular HGB Conc 33.1 g/dl (32-36); Mean Corpuscular Hemoglobin 29.4 pg (26-34); Mean Corpuscular Volume 88.6 fl (80-100); Mean Platelet Volume 10.1 fl (7.4-10.4); Monocytes Absolute Auto 0.6 K/mm3 (0.1-0.6); Monocytes Percent Auto 5.3 % (2.6-8.5); Neutrophils Absolute Auto 9.4 K/mm3 (1.3-6.7); Neutrophils Percent Auto 83.2 % (45.5-73.1); Platelet Count Result 404 k/mm3 (150-375); Red Blood Count 5.28 M/mm3 (4.6-6.20); Red Cell Distribution Width 13.7 % (11.5-14.5); White Blood Count 11.4 K/mm3 (4.5-10.0)
[2021-06-17 08:04] LABS: Alanine Aminotransferase 96 U/L (4-50); Albumin Level 3.7 g/dL (3.5-5.1); Alkaline Phosphatase 119 U/L (38-126); Anion Gap 11 mmol/L (8-16); Aspartate Amino Transferase 39 U/L (17-59); Bilirubin,Total 0.8 mg/dL (0.2-1.3); Blood Urea Nitrogen 27 mg/dL (9-20); CRP 1.4 mg/dL (<1.0); Calcium 8.9 mg/dL (8.4-10.2); Carbon Dioxide 25 mmol/L (22-30); Chloride 99 mmol/L (98-107); Estimated CRCL calculation 74 ml/min; Estimated Glomerular Filt Rate > 60; Glucose 127 mg/dL (65-110); Lactate Dehydrogenase 919 U/L (313-618); Magnesium 2.2 mg/dL (1.6-2.3); Potassium 4.2 mmol/L (3.4-5.0); Sodium 135 mmol/L (137-145)
[2021-06-17 08:48] LABS: INR 1.1; Prothrombin Time 14.2 Seconds (11.1-14.7)
[2021-06-17 08:59] LABS: D Dimer 1.24 ug/mL (<0.48)
[2021-06-17 09:02] LABS: NT Pro B Type Natriuretic Pept 803 pg/mL (5-100)
[2021-06-17] MEDS: guaiFENesin 12 HR 600 MG TABCR PO (09:10)
[2021-06-17] MEDS: ROSUVASTATIN 10 MG TABLET 40 MG PO (09:10)
[2021-06-17] MEDS: FUROSEMIDE INJ 40 MG/4 ML VIAL IV PUSH (09:10)
[2021-06-17] MEDS: ASPIRIN 81 MG CHEWABLE TABLET PO (09:11)
[2021-06-17] MEDS: TICAGRELOR 90 MG TABLET PO (09:11)
[2021-06-17] MEDS: carvediloL 25 MG TABLET PO (09:11)
--- NOTE | 2021-06-17 12:11 | PCRCNOTE ---
Past window of treatment ttime
--- NOTE | 2021-06-17 14:09 | PM.DS ---
DS: Admitting Diagnosis Discharge Date Date of Service 06/17/21 14:00 Admitting Diagnosis COVID-19 PNA/[place] DS: Discharge Diagnosis Discharge Diagnosis (1) Acute hypoxemic respiratory failure: Code(s): J96.01 - Acute respiratory failure with hypoxia Status: Acute Assessment and Plan: Secondary to COVID pneumonia with concomitant bacterial pneumonia. Continue supplemental oxygen as needed with goal saturation 92% or above. Saturations in the high 80s when sitting at rest, laying down patient sats about 94%, walking patient sats 90% He does have an increased work of breathing however can maintain his saturations Plan as detailed below No PE on CTA (2) Pneumonia due to COVID-19 virus: Code(s): U07.1 - COVID-19; J12.82 - Pneumonia due to coronavirus disease 2018 Status: Acute Assessment and Plan: Positive COVID test with home kit 12 days prior to presentation. repeat CXR showed Extensive bibasilar pneumonia with interval improvement in right upper lobe. 06/13/21 CTA showed diffuse lung disease consistent with COVID pneumonia and more dense consolidation in the right upper lobe raising concern for superimposed bacterial pneumonia. Confirmatory PCR testing positive from test 06/09/2021 Continue remdesivir #7 extended for 5 more days LFTs are elevated AST/ALT 50/99 Continue dexamethasone 6 mg daily. #7 today. Changed to IV BID Continue Azithromycin, Ceftriaxone has been DC'd Supportive care to include bronchodilators, expectorants, antipyretics, incentive spirometry Supplemental O2 as needed. wean to maintain saturation above 92% Continue isolation precautions Patient has not been vaccinated for COVID-19 due to history of Guillain-[place] syndrome at age 14 inflammatory markers: CRP 4.7, LDH 1386, Dimer 3.75, Ferritin 1140 06/14/21, repeat in the am (3) Lobar pneumonia: Code(s): J18.1 - Lobar pneumonia, unspecified organism Status: Acute Assessment and Plan: See above. Repeat CXR showed stable pneumonia 06/12/21 Continue azithromycin, DC'd ceftriaxone at this time Day 5 Vancomycin and Zosyn discontinued 06/10. Pt does not have risk factors and has not recently been hospitalized. Preliminary blood cultures negative Sputum culture shows gram positive cocci, growth of normal bess (4) CAD (coronary artery disease): Code(s): I25.10 - Atherosclerotic heart disease of [place] coronary artery without angina pectoris Status: Acute Assessment and Plan: Chest pain no more today Continue home regimen including aspirin, rosuvastatin, carvedilol Hold plavix since he is on lovenox On brilinta and aspirin Trops 7.730, Repeat EKG no significant changes from [address] Anderson about this and added full dose lovenox, and need to look for any new wall abnormalities Went to [facility] for a thrombectomy. (5) CHF (congestive heart failure), NYHA class II: Code(s): I50.9 - Heart failure, unspecified Status: Acute Assessment and Plan: Echo read as EF of 40-45% with grade 1 diastolic dysfunction Could be fluid overloaded, BNP high on the , current BNP 4780 One dose of lasix 40mg IV Could be going into an acute exacerbation with noted chest pain, and increased shortness of breath Continue carvedilol Monitor volume status (6) Insomnia: Code(s): G47.00 - Insomnia, unspecified Status: Acute Assessment and Plan: Probably from the steroids Melatonin Increase Xanax (7) Chest pain: Code(s): R07.9 - Chest pain, unspecified Status: Acute Assessment and Plan: Sternal chest pain with no radiation Extensive CAD history Does have a significant cough Trop elevated at 7.730, will trend Echo EF of 40-45% with grade 1 diastolic dysfunction BNP 4780 Cardiology consult thank you for your help, review case with who was listed on the call list,
--- NOTE | 2021-06-17 14:09 | P.DS_ITS ---
DS: Admitting Diagnosis Discharge Date Date of Service 06/17/21 14:00 Admitting Diagnosis COVID-19 PNA/[place] DS: Discharge Diagnosis Discharge Diagnosis (1) Acute hypoxemic respiratory failure: Code(s): J96.01 - Acute respiratory failure with hypoxia Status: Acute Assessment and Plan: * Secondary to COVID pneumonia with concomitant bacterial pneumonia. * Continue supplemental oxygen as needed with goal saturation 92% or above. * Saturations in the high 80s when sitting at rest, laying down patient sats about 94%, walking patient sats 90% * He does have an increased work of breathing however can maintain his saturations * Plan as detailed below * No PE on CTA (2) Pneumonia due to COVID-19 virus: Code(s): U07.1 - COVID-19; J12.82 - Pneumonia due to coronavirus disease 2018 Status: Acute Assessment and Plan: * Positive COVID test with home kit 12 days prior to presentation. * repeat CXR showed Extensive bibasilar pneumonia with interval improvement in right upper lobe. 06/13/21 * CTA showed diffuse lung disease consistent with COVID pneumonia and more dense consolidation in the right upper lobe raising concern for superimposed bacterial pneumonia. * Confirmatory PCR testing positive from test 06/09/2021 * Continue remdesivir #7 extended for 5 more days * LFTs are elevated AST/ALT 50/99 * Continue dexamethasone 6 mg daily. #7 today. Changed to IV BID * Continue Azithromycin, Ceftriaxone has been DC'd * Supportive care to include bronchodilators, expectorants, antipyretics, incentive spirometry * Supplemental O2 as needed. wean to maintain saturation above 92% * Continue isolation precautions * Patient has not been vaccinated for COVID-19 due to history of Guillain-[place] syndrome at age 14 * inflammatory markers: CRP 4.7, LDH 1386, Dimer 3.75, Ferritin 1140 06/14/21, repeat in the am (3) Lobar pneumonia: Code(s): J18.1 - Lobar pneumonia, unspecified organism Status: Acute Assessment and Plan: * See above. * Repeat CXR showed stable pneumonia 06/12/21 * Continue azithromycin, DC'd ceftriaxone at this time Day 5 * Vancomycin and Zosyn discontinued 06/10. Pt does not have risk factors and has not recently been hospitalized. * Preliminary blood cultures negative * Sputum culture shows gram positive cocci, growth of normal bess (4) CAD (coronary artery disease): Code(s): I25.10 - Atherosclerotic heart disease of [place] coronary artery without angina pectoris Status: Acute Assessment and Plan: * Chest pain no more today * Continue home regimen including aspirin, rosuvastatin, carvedilol * Hold plavix since he is on lovenox * On brilinta and aspirin * Trops 7.730, * Repeat EKG no significant changes from 2017 * Talked to Dr. 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 (5) CHF (congestive heart failure), NYHA class II: Code(s): I50.9 - Heart failure, unspecified Status: Acute Assessment and Plan: * Echo read as EF of 40-45% with grade 1 diastolic dysfunction * Could be fluid overloaded, BNP high on the 24th, current BNP 4780 * One dose of lasix 40mg IV * Could be going into an acute exacerbation with noted chest pain, and increased shortness of breath * Continue carvedilol * Monitor volume status (6) Insomnia: Code(s): G47.00 - Insomnia, unspecified Status: Acute Assessment and Plan: * Probably from the stero
== END 2021-06-17 15:35 | disposition home or self-care (01) | DRG 981 ==
LOC: ANHED 18:42 → ANH3MEDSUR 06-09 17:45 → ANHIMU 06-20 15:11
PROVIDERS: Internal Medicine; Internal Medicine Cardiovascular Disease; Internal Medicine Interventional Cardiology; Nurse Practitioner; Nurse Practitioner Adult Health; Admitting Provider Internal Medicine; Emergency Provider Nurse Practitioner; PCP Student in an Organized Health Care Education/Training Program; Visit Provider Physician Assistant
PROC: 4A023N7 Measurement of Cardiac Sampling and Pressure, Left Heart, Percutaneous Approach (ICD-10-PCS; CPT 93452; principal; 2021-06-13 17:00)
PROC: 02703ZZ Dilation of Coronary Artery, One Artery, Percutaneous Approach (ICD-10-PCS; CPT 92920; 2021-06-13 17:00)
PROC: 02703ZZ Dilation of Coronary Artery, One Artery, Percutaneous Approach (ICD-10-PCS; CPT 92973; 2021-06-13 17:00)
DX: U07.1 COVID-19 (principal); J12.82 Pneumonia due to coronavirus disease 2019; J96.01 Acute respiratory failure with hypoxia; J15.9 Unspecified bacterial pneumonia; I21.4 Non-ST elevation (NSTEMI) myocardial infarction; I24.9 Acute ischemic heart disease, unspecified; T82.855A Stenosis of coronary artery stent, initial encounter; R50.9 Fever, unspecified; I10 Essential (primary) hypertension; E78.5 Hyperlipidemia, unspecified; I25.10 Atherosclerotic heart disease of native coronary artery without angina pectoris; Z95.5 Presence of coronary angioplasty implant and graft; Z87.891 Personal history of nicotine dependence; Z79.82 Long term (current) use of aspirin; M19.90 Unspecified osteoarthritis, unspecified site; E05.90 Thyrotoxicosis, unspecified without thyrotoxic crisis or storm; I11.0 Hypertensive heart disease with heart failure; I50.9 Heart failure, unspecified; R53.83 Other fatigue; G62.9 Polyneuropathy, unspecified; G65.0 Sequelae of Guillain-Barre syndrome; G47.00 Insomnia, unspecified; T38.0X5A Adverse effect of glucocorticoids and synthetic analogues, initial encounter; Y92.230 Patient room in hospital as the place of occurrence of the external cause; R77.8 Other specified abnormalities of plasma proteins; R74.01 Elevation of levels of liver transaminase levels; I25.5 Ischemic cardiomyopathy; I71.4 Abdominal aortic aneurysm, without rupture; Y71.1 Therapeutic (nonsurgical) and rehabilitative cardiovascular devices associated with adverse incidents; Y92.9 Unspecified place or not applicable; Z91.041 Radiographic dye allergy status
CPT/HCPCS: 36415; 36600; 71045; 71275; 74177; 80053; 80074; 80202; 82565; 82728; 82805; 83615; 83735; 83880; 84460; 84484; 85025; 85027; 85380; 85610; 85730; 86140; 86900; 86901; 87040; 87070; 87077; 87186; 87205; 92920; 92973; 93005; 93306; 93458; 94640; 96365; 96367; 96375; 97110; 97116; 97162; 97165; 97530; 99285; A9270; C1725; C1757; C1769; C1887; C1894; C9803; J0153; J0456; J0696; J1100; J1200; J1644; J1650; J1940; J2060; J2270; J2405; J2543; J3370; J7040; J7060; J7120; J8540; Q9967; U0003; U0005

== ENCOUNTER 2021-06-25 00:48 | Emergency (ER) | payer MEDICARE, SELFPAY ==
--- NOTE | 2021-06-25 02:02 | WPDCN ---
Assessment and Plan Assessment and plan (1) Left-sided epistaxis: Code(s): R04.0 - Epistaxis Status: Acute Assessment and Plan: Please call [facility] office [phone] to schedule an appt Friday. Nasal saline spray left side 4-6 times per day while awake. No strenous activity. Hold 10a inhibitor if possible. Discuss with prescribing MD before holding. HPI Data of Consult Date/Time: 06/25/21 02:02 Primary Care Provider: Jamey Peterson, DO Consult Narrative Narrative: Sebastien Pineda is a 66 year old male with epistaxis. On a 10a inhibitor. No previous episodes. [facility] Past Medical History Medical History (Updated 06/25/21 @ 02:05 by Mahad Saldana MD) Abdominal aortic aneurysm Adenomatous colon polyp Adult BMI 33.0-33.9 kg/sq m Arthritis CAD (coronary artery disease) CHF (congestive heart failure), NYHA class II Erectile dysfunction H/O: HTN (hypertension) Heart disease Hyperthyroidism SOB (shortness of breath) Surgical History Surgical History H/O cardiac radiofrequency ablation History of heart artery stent History of tracheostomy Family History Family History (Updated 06/13/21 @ 16:59 by Olivier Winter MD) Mother No pertinent past medical history Father CAD (coronary artery disease) Social History Social History Smoking packs per day: 1 Smoking cigarettes per day: 20.0 Years smoked: 40 Smoking pack-years: 40.00 Smoking status: Former smoker Tobacco type: cigarettes Second hand tobacco smoke exposure: No Alcohol intake: never Substance use: never Gender identity (if verbalized by the patient): Male Sexual Orientation (if Verbalized by the Patient): Straight or Heterosexual Spiritual care concerns: No Meds Home Medications and Allergies Home Medications Medication Instructions Recorded Confirmed Type carvedilol 25 mg tablet 25 mg PO Q12H 05/24/19 06/09/21 History rosuvastatin 40 mg sprinkle capsule 40 mg PO DAILY 05/24/19 06/09/21 History aspirin 81 mg PO DAILY 02/08/21 06/09/21 History benzonatate 200 mg PO TID #30 cap 06/02/21 06/09/21 Rx albuterol sulfate [Proventil HFA] 2 puff INHALATION Q6HRT #6.7 g 06/17/21 Rx alprazolam 0.25 mg PO TID PRN #10 tablet 06/17/21 Rx dexamethasone [Decadron] 6 mg PO DAILY #5 tablet 06/17/21 Rx levofloxacin 750 mg PO DAILY #5 tablet 06/17/21 Rx nitroglycerin [Nitrostat] 0.4 mg SUBLINGUAL Q5MIN PRN #30 06/17/21 Rx tablet ondansetron HCl [Zofran] 4 mg PO Q6H PRN #10 tablet 06/17/21 Rx ticagrelor [Brilinta] 90 mg PO Q12HR #60 tablet 06/17/21 Rx Allergies Allergy/AdvReac Type Severity Reaction Status Date / Time codeine Allergy Unknown Other Verified 06/08/21 14:39 Iodinated Contrast Media Allergy Unknown Hives Verified 06/12/21 19:09 Exam HENMT: Other: Left anterior bleeding. Controlled with complex cautery requiring multiple rounds of cautery. Patient tolerated well. No further bleeding from kesselbachs region. Packed with surgicel
--- NOTE | 2021-06-25 02:05 | ED.GENADULT ---
HPI - General Adult General Chief complaint: Epistaxis Stated complaint: nose bleed takes brilinta Time Seen by Provider: 06/25/21 01:37 History of Present Illness HPI narrative: Patient is 66-year-old gentleman who presents the emergency department with chief complaint of bleeding from left nostril. Patient reports he was recently in the hospital for cardiac issues and was switched to Brilinta. Patient states this evening he started bleeding out of his left nostril and was unable to control the bleeding. The patient states that his not having bleeding out of both nostrils reports no trauma. The patient reports that has not had required packing before in the past. Related Data Home Medications Medication Instructions Recorded Confirmed carvedilol 25 mg tablet 25 mg PO Q12H 05/24/19 06/09/21 rosuvastatin 40 mg sprinkle capsule 40 mg PO DAILY 05/24/19 06/09/21 aspirin 81 mg PO DAILY 02/08/21 06/09/21 Allergies Allergy/AdvReac Type Severity Reaction Status Date / Time codeine Allergy Unknown Other Verified 06/08/21 14:39 Iodinated Contrast Media Allergy Unknown Hives Verified 06/12/21 19:09 Review of Systems Review of Systems: A 10 system review of systems was completed on the patient and is negative except for what is stated in the HPI. Nursing and ancillary documentation was reviewed. [facility] Past Medical History Medical History Abdominal aortic aneurysm Adenomatous colon polyp Adult BMI 33.0-33.9 kg/sq m Arthritis CAD (coronary artery disease) CHF (congestive heart failure), NYHA class II Erectile dysfunction H/O: HTN (hypertension) Heart disease Hyperthyroidism SOB (shortness of breath) Surgical History Surgical History H/O cardiac radiofrequency ablation History of heart artery stent History of tracheostomy Family History Family History Mother No pertinent past medical history Father CAD (coronary artery disease) Social History Social History Smoking packs per day: 1 Smoking cigarettes per day: 20.0 Years smoked: 40 Smoking pack-years: 40.00 Smoking status: Former smoker Tobacco type: cigarettes Second hand tobacco smoke exposure: No Alcohol intake: never Substance use: never Gender identity (if verbalized by the patient): Male Sexual Orientation (if Verbalized by the Patient): Straight or Heterosexual Spiritual care concerns: No Exam Narrative: GENERAL: Well-appearing, well-nourished, and in no acute distress. HEAD: Normocephalic, atraumatic. EYES: PERRLA and EOMI. ENT: Nares clear, no rhinorrhea or epistaxis. Mucous membranes moist. Active bleeding out of the left nostril NECK: Supple. CHEST: Clear to auscultation. No respiratory distress. HEART: Regular rate and rhythm. No murmur heard. Normal peripheral pulses. ABDOMEN: Soft, nontender, nondistended, normal active bowel sounds. EXTREMITIES: Normal range of motion. No edema. SKIN: Warm, dry, no rash. NEURO: No focal deficits. Alert and oriented x3. PSYCH: Normal mood and affect. Course Course Emergency Course: When the patient arrived to the emergency department Dr. Saldana was in the ER seeing another patient and graciously was available to see the patient while waiting to take another patient to the operating room. Bleeding was controlled by ENT and the patient was packed by ENT. Discharge Plan Discharge Clinical Impression: Acute anterior epistaxis Patient Disposition: Home, Self-Care Condition: Stable Instructions: Antibiotic Form, Nosebleed (ED) Additional Instructions: It is recommended that you use nasal saline 4-5 times a day please follow-up with Dr. Saldana in the office on Friday Prescriptions: No Action carvedilol [Coreg] 25 mg ta
[2021-06-25 02:07] VITALS: BP 115/78; PULSE 80; RESP 15; O2SAT 100
[2021-06-25 02:37] VITALS: BP 110/83; PULSE 87; RESP 18; TEMP 36.6; O2SAT 100
== END 2021-06-25 02:46 | disposition home or self-care (01) ==
PROVIDERS: Emergency Provider Emergency Medicine; PCP Student in an Organized Health Care Education/Training Program
DX: R04.0 Epistaxis (principal); I25.10 Atherosclerotic heart disease of native coronary artery without angina pectoris; I50.9 Heart failure, unspecified; I11.0 Hypertensive heart disease with heart failure; E05.90 Thyrotoxicosis, unspecified without thyrotoxic crisis or storm; Z86.010 Personal history of colon polyps; Z95.5 Presence of coronary angioplasty implant and graft; Z87.891 Personal history of nicotine dependence; Z79.82 Long term (current) use of aspirin
CPT/HCPCS: 30901; 30903; 99283; A9270

== ENCOUNTER 2021-07-04 09:38 | Outpatient (CLI) | payer MEDICARE, SELFPAY ==
[2021-07-04 10:24] LABS: Basophils Percent Auto 0.4 % (0.2-1.2); Eosinophils Absolute Auto 0.3 K/mm3 (0-0.3); Eosinophils Percent Auto 5.4 % (0-4.4); Hematocrit 38.5 % (42.0-52.0); Hemoglobin 12.2 g/dL (14.0-18.0); Immature Granulocyte Absolute 0.01 K/mm3 (0.00-0.031); Immature Granulocyte Percent A 0.2 % (0-0.5); Lymphocytes Percent Auto 26.9 % (18.3-44.2); Mean Corpuscular HGB Conc 31.7 g/dl (32-36); Mean Corpuscular Hemoglobin 29.2 pg (26-34); Mean Corpuscular Volume 92.1 fl (80-100); Mean Platelet Volume 9.6 fl (7.4-10.4); Monocytes Absolute Auto 0.4 K/mm3 (0.1-0.6); Monocytes Percent Auto 8.1 % (2.6-8.5); Neutrophils Absolute Auto 2.9 K/mm3 (1.3-6.7); Red Blood Count 4.18 M/mm3 (4.6-6.20); Red Cell Distribution Width 14.6 % (11.5-14.5); White Blood Count 4.8 K/mm3 (4.5-10.0)
[2021-07-04 10:32] LABS: Platelet Count Result 111 k/mm3 (150-375)
[2021-07-04 10:48] LABS: Alanine Aminotransferase 65 U/L (4-50); Albumin Level 3.8 g/dL (3.5-5.1); Alkaline Phosphatase 74 U/L (38-126); Anion Gap 8 mmol/L (8-16); Aspartate Amino Transferase 43 U/L (17-59); Bilirubin,Total 0.6 mg/dL (0.2-1.3); Blood Urea Nitrogen 13 mg/dL (9-20); Carbon Dioxide 26 mmol/L (22-30); Chloride 102 mmol/L (98-107); Estimated Glomerular Filt Rate > 60; Glucose 100 mg/dL (65-110); Potassium 4.5 mmol/L (3.4-5.0); Sodium 136 mmol/L (137-145)
== END 2021-07-04 09:39 | disposition home or self-care (01) ==
LOC: ANHLAB 09:43
PROVIDERS: PCP Student in an Organized Health Care Education/Training Program; Visit Provider Student in an Organized Health Care Education/Training Program
DX: R05.9 Cough, unspecified (principal); E86.0 Dehydration
CPT/HCPCS: 36415; 80053; 85025

== ENCOUNTER 2021-07-12 08:12 | Outpatient (CLI) | payer MEDICARE, SELFPAY ==
--- NOTE | ~2021-07-12 | XR_ITS ---
XR chest 2V 07/12/2021 08:35 Indication: Persistent cough since Covid Procedure: PA and lateral views of the chest Comparison: Comparison to multiple prior studies sequentially, with oldest reviewed study dated 05/17. Findings: Status post median sternotomy for CABG. There is a coronary stent. Status post median gregory otomy for CABG. Right basilar airspace disease which may represent atelectasis or pneumonia. This has improved since prior examinations. No significant pleural effusion, edema or pneumothorax. No acute osseous abnormality. Impression: 1: Improved right basilar airspace disease may represent pneumonia and/or atelectasis. Reviewed, dictated and finalized at location B. [employer] Impression: 1: Improved right basilar airspace disease may represent pneumonia and/or atele ctasis.
== END 2021-07-12 08:13 | disposition home or self-care (01) ==
LOC: ANHIMG 08:22
PROVIDERS: PCP Student in an Organized Health Care Education/Training Program; Visit Provider Registered Nurse
DX: U07.1 COVID-19 (principal); R05.9 Cough, unspecified; Z95.1 Presence of aortocoronary bypass graft
CPT/HCPCS: 71046

== ENCOUNTER 2021-07-20 08:42 | Outpatient (CLI) | payer MEDICARE, SELFPAY ==
[2021-07-20 08:57] LABS: Basophils Percent Auto 0.6 % (0.2-1.2); Eosinophils Absolute Auto 0.1 K/mm3 (0-0.3); Eosinophils Percent Auto 1.1 % (0-4.4); Hemoglobin 13.2 g/dL (14.0-18.0); Immature Granulocyte Absolute 0.01 K/mm3 (0.00-0.031); Immature Granulocyte Percent A 0.2 % (0-0.5); Lymphocytes Absolute Auto 1.61 K/mm3 (0.9-3.2); Lymphocytes Percent Auto 34.7 % (18.3-44.2); Mean Corpuscular HGB Conc 31.4 g/dl (32-36); Mean Corpuscular Hemoglobin 29.3 pg (26-34); Mean Corpuscular Volume 93.3 fl (80-100); Mean Platelet Volume 9.4 fl (7.4-10.4); Monocytes Absolute Auto 0.4 K/mm3 (0.1-0.6); Monocytes Percent Auto 8.6 % (2.6-8.5); Neutrophils Absolute Auto 2.5 K/mm3 (1.3-6.7); Neutrophils Percent Auto 54.8 % (45.5-73.1); Platelet Count Result 193 k/mm3 (150-375); Red Cell Distribution Width 14.8 % (11.5-14.5); White Blood Count 4.6 K/mm3 (4.5-10.0)
[2021-07-20 09:22] LABS: Alanine Aminotransferase 23 U/L (4-50); Albumin Level 4.2 g/dL (3.5-5.1); Alkaline Phosphatase 63 U/L (38-126); Anion Gap 6 mmol/L (8-16); Aspartate Amino Transferase 23 U/L (17-59); Bilirubin,Total 0.5 mg/dL (0.2-1.3); Blood Urea Nitrogen 12 mg/dL (9-20); Calcium 8.9 mg/dL (8.4-10.2); Carbon Dioxide 25 mmol/L (22-30); Chloride 108 mmol/L (98-107); Cholesterol 203 mg/dL (0-200); Creatine Kinase 39 U/L (55-170); Estimated Glomerular Filt Rate > 60; Glucose 117 mg/dL (65-110); HDL Direct 40 mg/dL; LDL Cholesterol Direct 87 mg/dL; Potassium 4.2 mmol/L (3.4-5.0); Sodium 139 mmol/L (137-145); Triglycerides 330 mg/dL (<150)
== END 2021-07-20 08:43 | disposition home or self-care (01) ==
PROVIDERS: PCP Student in an Organized Health Care Education/Training Program; Visit Provider Registered Nurse
DX: E78.2 Mixed hyperlipidemia (principal); D64.9 Anemia, unspecified
CPT/HCPCS: 36415; 80053; 80061; 82550; 85025

== ENCOUNTER 2021-07-25 08:42 | Outpatient (CLI) | payer MEDICARE, SELFPAY | END 2021-07-25 08:43 | disposition home or self-care (01) | LOC: ANHAUDIO 08:43 | PROVIDERS: PCP Student in an Organized Health Care Education/Training Program; Visit Provider Otolaryngology | DX: H90.3 Sensorineural hearing loss, bilateral (principal); H93.13 Tinnitus, bilateral | CPT/HCPCS: 92557; 92567 ==